=== PATIENT | female | born 1950 | race Caucasian/White ===

== ENCOUNTER 2020-05-11 13:59 | Emergency (ER) | payer MEDICARE, MEDICAID, SELFPAY ==
[2020-05-11 15:20] VITALS: BP 134/79; PULSE 72; RESP 16; TEMP 37.1; O2SAT 99; BMI 21.2
--- NOTE | 2020-05-11 18:05 | XR_ITS ---
EXAMINATION: XR HAND, LEFT CLINICAL INFORMATION: Pain COMPARISON: None TECHNIQUE: PA, lateral, and oblique views of the left hand. FINDINGS: No acute fracture or dislocation. Some scattered degenerative changes are noted. XR/XR hand LT 2V IMPRESSION: No acute finding of the left hand.
--- NOTE | 2020-05-11 18:23 | ED.EXTPRO ---
HPI - Extremity Problem General Chief complaint: Extremity Problem Stated complaint: hand pain Source: patient Mode of arrival: ambulatory Limitations: language barrier History of Present Illness HPI Narrative: 70-year-old female with past medical history of arthritis presents with 2 weeks of left hand pain and intermittent swelling of the knuckles. She does not have any swelling at this time, does not report any trauma, falls, or injury. She did not report any fevers or chills, has no other symptoms at this time. MD Complaint: extremity pain Onset (ago): week(s) (2) Pain Consistency: constant Location: left Severity scale (1-10): 6 Quality: aching Radiation: proximal Relieving factors: nothing Exacerbating factors: range of motion Associated symptoms: denies other symptoms Related Data Allergies Allergy/AdvReac Type Severity Reaction Status Date / Time iodine [IODINE] Allergy Intermediate NAUSEA Verified 05/11/20 15:24 SHELLFISH Allergy Intermediate NAUSEA Uncoded 02/05/20 17:30 fish Allergy Unknown Unknown Uncoded 05/11/20 15:24 Review of Systems Review of Systems: Constitutional: No Fever, No Chills ENT/Mouth: No Ear Pain, No Hoarseness, No sore throat Eyes: No Eye Pain, No Swelling, No Redness, No Foreign Body Cardiovascular: No Chest Pain, No SOB Respiratory: No Cough, No Dyspnea Gastrointestinal: No Nausea, No Vomiting, No Diarrhea, No abdominal Pain Genitourinary: No Dysuria, No Hematuria Musculoskeletal: positive left hand and knuckle pain, No Myalgias, No Joint Swelling Skin: No Skin lacerations, No rash Neuro: No Weakness, No Numbness, No Paresthesias, No Loss of Consciousness, No Dizziness, No Headache Psych: No Anxiety/Panic, No Depression Heme/Lymph: no easy bruising, no Lymphadenopathy Endocrine: No Polyuria, No Polydipsia Yes all other systems are reviewed and are negative [facility] Past Medical History Attestation statement: The following information was validated with the patient. Medical History Arthritis Diabetes Fibromyalgia HTN (hypertension) Social History Social History Advance Directives: No Advance Directives Information Provided: Yes Physical Exam Vital Signs: Vital Signs: Last Vital Signs Temp 98.8 F 05/11/20 15:20 Pulse 72 05/11/20 15:20 Resp 16 05/11/20 15:20 BP 134/79 05/11/20 15:20 Pulse Ox 99 05/11/20 15:20 Body Mass Index 21.2 Appearance: Alert. Oriented X3. No acute distress. Eyes: Pupils equal, round and reactive to light. ENT: Pharynx normal. Neck: Normal inspection. Neck supple. CVS: Normal heart rate and rhythm. Pulses normal. Respiratory: No respiratory distress. Breath sounds normal. Abdomen: Soft and nontender. Skin: Skin warm and dry. Normal skin color. Normal skin turgor. Extremities: No lower extremity edema. Neuro: No motor deficit. No sensory deficit. Course Course Course Narrative: 70-year-old female past medical history of arthritis presents with left hand pain and finger tingling for approximately 2 weeks. She does have intermittent swelling to the knuckles of the left hand, was seen at an urgent care earlier today and given Tylenol. Patient is here for x-rays. X-rays negative for acute findings. Plan of care is for patient to follow-up with primary care provider and to continue to take Tylenol. 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 Google translate utilized for discharge instructions. MDM - Extremity (Nontraumatic) Imaging Data Left hand x-ray: Attestation: I personally reviewed and interpreted this imaging study as follows: Radiologist's impression: EXAMINATION: XR HAND, LEFT CLINICAL INFORMATION: Pain COMPARISON: None TECHNIQUE: PA, lateral, and oblique views of the left hand. FINDINGS: No acute fracture or dislocation. Some scattered degenerative changes are noted. XR/XR hand LT 2V IMPRESSION: No acute finding of the left hand. Discharge Plan Discharge Clinical Impression: Arthritis Patient Disposition: Home, Self-Care Instructions: Arthritis (ED) Additional Instructions: Te evaluaron para el dolor de la mano izquierda. Se sospecha que esto es artritis. Cristian X negativos. Por favor, contin?e utilizando Tylenol seg?n sea necesario para el manejo del dolor. Seguimiento con el proveedor de atenci?n primaria a finales de esta semana para mayor atenci?n. Alessandra por elegir gurdeep departamento de emergencias para la evaluaci?n. Por favor, sam un seguimiento con el m?dico de atenci?n primaria seg?n sea necesario. Regrese al departamento de emergencias para cualquier s?ntoma nuevo, preocupante o que empeore You were evaluated for left hand pain. This is suspected to be arthritis. X-rays negative. Please continue to use Tylenol as needed for pain management. Follow-up with primary care provider later this week for further care. Thank you for choosing this emergency department for evaluation. Please follow-up with primary care physician as needed. Return to the emergency department for any new, concerning, or worsening symptoms. Interventions: ED Discharge Assessment Last Done: 05/11/20 20:10 Discharge Date/Time: 05/11/20 20:12 Print Language: Turkmen
== END 2020-05-11 20:12 | disposition home or self-care (01) ==
PROVIDERS: Emergency Provider Emergency Medicine; PCP Internal Medicine Geriatric Medicine
DX: M19.042 Primary osteoarthritis, left hand (principal); M79.642 Pain in left hand; I10 Essential (primary) hypertension; Z79.899 Other long term (current) drug therapy
CPT/HCPCS: 73120; 99283

== ENCOUNTER 2020-06-17 10:01 | Outpatient (REF) | payer MEDICARE, MEDICAID, SELFPAY ==
--- NOTE | 2020-06-17 10:06 | EMG_ITS ---
Bilateral median and ulnar motor and sensory studies were performed. Bilateral radial sensory studies were performed and paraspinal muscles were tested with a needle. IMPRESSION: 1. [id number] bilateral median neuropathy across carpal tunnel. 2. [id number] bilateral ulnar neuropathy across cubital tunnel. MD ARTUR [place]/MANNY / [id number]
== END 2020-06-17 10:02 | disposition home or self-care (01) ==
LOC: HO.NEURO 10:01
PROVIDERS: PCP Internal Medicine Geriatric Medicine; Visit Provider Internal Medicine Geriatric Medicine
DX: M79.2 Neuralgia and neuritis, unspecified (principal); M79.642 Pain in left hand
CPT/HCPCS: 95886; 95911

== ENCOUNTER → 2020-08-31 12:59 | Outpatient (BNVA) | payer MEDICARE, MEDICAID, SELFPAY | PROVIDERS: PCP Internal Medicine Geriatric Medicine; Visit Provider Orthopaedic Surgery | DX: G56.01 Carpal tunnel syndrome, right upper limb (principal); G56.02 Carpal tunnel syndrome, left upper limb; G56.21 Lesion of ulnar nerve, right upper limb; G56.22 Lesion of ulnar nerve, left upper limb | CPT/HCPCS: 99202 ==

== ENCOUNTER 2021-01-03 13:49 | Emergency (ER) | payer OTHER, MEDICARE, SELFPAY ==
--- NOTE | ~2021-01-03 | XR_ITS ---
EXAMINATION: XR SHOULDER, RIGHT CLINICAL INFORMATION: Fall. COMPARISON: Right shoulder September 11, 2011 TECHNIQUE: Three views of the right shoulder. FINDINGS: No fracture. No dislocation. No soft tissue calcification. There is mild degenerative change of the acromioclavicular joint and the glenohumeral joint. XR/XR shoulder RT min 2V IMPRESSION: 1. No acute abnormality. 2. Mild degenerative change of the acromioclavicular joint and the glenohumeral joint.
--- NOTE | ~2021-01-03 | CT_ITS ---
EXAMINATION: CT HEAD WITHOUT CONTRAST CLINICAL INFORMATION: Intracranial hemorrhage. COMPARISON: None TECHNIQUE: Contiguous axial imaging was performed from the skull base to vertex without intravenous administration of contrast. Coronal and sagittal reformatted images are performed at the CT scanner This CT examination was performed using dose optimization techniques as appropriate, variously including the following: *Automated exposure control *Adjustment of mA and/or kV according to patient size (this includes techniques or standardized protocols for targeted exams where dose is matched to indication/reason for exam; i.e. extremities or head) *Use of iterative reconstruction technique DLP: 623 mGy-cm FINDINGS: There is no evidence of acute intracranial hemorrhage or territorial infarction. No abnormal mass effect or midline shift is seen. Erwin to white matter differentiation is well preserved. No extra-axial fluid collections are identified. The ventricles are normal in size. There is no abnormal attenuation within the brain parenchyma. The osseous structures and soft tissues are normal. The mastoid air cells and visualized portions of the paranasal sinuses are well aerated. CT/CT head/brain wo con IMPRESSION: No acute intracranial pathology.
--- NOTE | ~2021-01-03 | XR_ITS ---
EXAMINATION: XR ANKLE, RIGHT CLINICAL INFORMATION: Fall. COMPARISON: None TECHNIQUE: 3 views of the right ankle. FINDINGS: The bones and soft tissues are normal. No fracture. Alignment is anatomic. Joint spaces are maintained. No joint effusion. XR/XR ankle RT min 3V IMPRESSION: Normal right ankle.
[2021-01-03 14:16] VITALS: BP 174/76; BP 186/87; PULSE 83; PULSE 92; RESP 18; TEMP 36.8; O2SAT 100; O2SAT 99; BMI 21.6
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
== END 2021-01-03 18:03 | disposition home or self-care (01) ==
PROVIDERS: Emergency Provider Emergency Medicine; PCP Internal Medicine Geriatric Medicine
DX: S93.401A Sprain of unspecified ligament of right ankle, initial encounter (principal); S43.401A Unspecified sprain of right shoulder joint, initial encounter; V03.00XA Pedestrian on foot injured in collision with car, pick-up truck or van in nontraffic accident, initial encounter; E11.9 Type 2 diabetes mellitus without complications; I10 Essential (primary) hypertension; Z79.4 Long term (current) use of insulin; Z79.82 Long term (current) use of aspirin; Z79.899 Other long term (current) drug therapy; Y93.01 Activity, walking, marching and hiking; Y92.9 Unspecified place or not applicable; Y99.9 Unspecified external cause status
CPT/HCPCS: 70450; 73030; 73610; 99283; 99284

== ENCOUNTER 2022-02-23 13:05 | Inpatient (IN) | payer OTHER, SELFPAY ==
--- NOTE | ~2022-02-23 | CT_ITS ---
EXAMINATION: CT ABDOMEN AND PELVIS WITHOUT CONTRAST CLINICAL INFORMATION: Upper abdominal pain. COMPARISON: CT abdomen pelvis without contrast 06/11/2017 TECHNIQUE: Multidetector volumetric imaging was performed from the superior aspect of the liver through the pubic symphysis. Sagittal and coronal reformatted images were obtained on the technologist's workstation. This CT examination was performed using dose optimization techniques as appropriate, variously including the following: *Automated exposure control *Adjustment of mA and/or kV according to patient size (this includes techniques or standardized protocols for targeted exams where dose is matched to indication/reason for exam; i.e. extremities or head) *Use of iterative reconstruction technique DLP: 295 mGy-cm FINDINGS: LUNG BASES: The lung bases are clear. LIVER, GALLBLADDER, AND BILIARY TREE: The liver is normal in size, shape, and attenuation. No focal hepatic lesion or biliary ductal dilatation is present. The gallbladder is unremarkable with no evidence of radiopaque gallstones, gallbladder wall thickening, or obvious pericholecystic inflammatory changes. PANCREAS: Unremarkable. SPLEEN: Unremarkable. ADRENAL GLANDS: Unremarkable. KIDNEYS AND URETERS: The kidneys are normal in size, shape, and attenuation. No hydronephrosis, hydroureter, or calculi seen. No perinephric stranding. Minimal fullness of bilateral kidney pelvis BLADDER: Unremarkable. GASTROINTESTINAL TRACT: There is moderate stool seen throughout the colon consistent with constipation. The small bowel loops are normal caliber. The appendix is not visualized. ABDOMINAL WALL: No significant hernia is appreciated. LYMPH NODES: Normal. VASCULAR: Unremarkable. PELVIC VISCERA: Uterus is not visualized. There is vascular calcifications in bilateral adnexa. OSSEOUS STRUCTURES: No aggressive lytic or sclerotic process seen. CT/CT abdomen pelvis wo IV con IMPRESSION: No acute intra-abdominal process seen. There is moderate constipation. Fleischner guidelines were followed.
--- NOTE | ~2022-02-23 | NM_ITS ---
Myocardial perfusion study Indication: Elevated troponins to evaluate for myocardial ischemia Technique: The patient was brought in for a Lexiscan perfusion study on 02/28/2022. Patient performed low-level exercise and was injected 0.4 mg of Lexiscan intravenously. Within a minute of injection, 30 mCi of sestamibi was given intravenously. Images were obtained using the SPECT gamma camera interlaced with the gating device. Images were obtained in supine position. Resting perfusion study was performed on 02/28/2022. Patient was administered 10 mCi of sestamibi intravenously at rest. Images were then obtained in supine position. Images obtained with and without CT attenuation. Total DLP 79 mGy-cm. Images were processed with the software and compared side to side in short axis, horizontal long axis and vertical long axis views. Findings: The stress perfusion study showed non attenuated as well as attenuated corrected images show normal uptake of radiotracer in all segments of LV myocardium. The gated study shows normal LV systolic function with calculated LVEF of greater than 70 %. LV cavity is normal size. The gated study shows normal systolic wall thickening and contraction of segments. Resting study shows no change in perfusion pattern compared to stress perfusion study. Gating at rest reveals normal systolic wall motion with ejection fraction at greater than 70 %. The findings are consistent with normal myocardial perfusion. NM/NM jose perf SPECT rest & str Impression: 1. Myocardial perfusion imaging study shows normal myocardial perfusion 2. Gated LVEF is greater than 70% 3. Transient ischemic dilatation not present EKG is nondiagnostic for ischemia
[2022-02-23 15:03] VITALS: BP 126/79; PULSE 109; RESP 20; TEMP 36; O2SAT 99; BMI 20.9
--- NOTE | 2022-02-23 15:09 | ECG_ITS ---
Test Reason : DIZZY Blood Pressure : / mmHG Vent. Rate : 101 BPM Atrial Rate : 101 BPM P-R Int : 142 ms QRS Dur : 066 ms QT Int : 336 ms P-R-T Axes : 086 066 073 degrees QTc Int : 435 ms Sinus tachycardia Right atrial enlargement Borderline ECG When compared with ECG of 25-DEC-2012 12:55, Vent. rate has increased BY 36 BPM Criteria for Septal infarct are no longer Present Nonspecific T wave abnormality no longer evident in Inferior leads Nonspecific T wave abnormality no longer evident in Anterior leads Right atrial enlargement is now Present Referred By: Generic ED Physician Electronically Signed By:KATIE SOUSA
[2022-02-23 15:27] LABS: MANUAL DIFF FLAG NO
[2022-02-23 15:29] LABS: Basophils Absolute Auto 0.1 X10*3/uL (0.0-0.2); Basophils Percent Auto 0.7 % (0-2); Eosinophils Percent Auto 0.6 % (0-4); Hemoglobin 10.9 g/dl (12.0-16.0); Imm Gran Abs Auto 0.01 X10*3/uL (0.00-0.03); Imm Gran Pct Auto 0.1 % (0.0-0.4); Lymphocytes Absolute Auto 2.6 X10*3/uL (1.2-4.9); Lymphocytes Percent Auto 36.2 % (20-40); Mean Corpuscular HGB Conc 31.1 g/dl (31.0-35.0); Mean Corpuscular Volume 77.1 fL (80.0-98.0); Monocytes Absolute Auto 0.5 X10*3/uL (0.1-1.2); Monocytes Percent Auto 7.2 % (2-11); Neutrophils Absolute Auto 3.9 x10*3/uL (2.0-8.3); Neutrophils Percent Auto 55.2 % (45-73); Platelet Count 397 X10*3/uL (160-400); Red Blood Count 4.54 X10*6/uL (4.20-5.50); Red Cell Distribution Width 12.8 % (11.0-16.0); White Blood Count 7.1 X10*3/uL (4.8-10.8)
[2022-02-23 15:51] LABS: Troponin-I High Sensitivity 18.3 ng/L (<3.5-17.0)
[2022-02-23 15:51] LABS: COVID-19 Test Negative (Negative)
[2022-02-23 15:59] LABS: Alanine Aminotransferase 6 U/L (0-31); Albumin Level 4.1 g/dL (3.5-5.0); Alkaline Phosphatase 155 U/L (39-117); Anion Gap 21 (12-20); Aspartate Amino Transferase 15 U/L (5-31); Bilirubin Direct 0.2 mg/dL (0.0-0.5); Bilirubin Total 0.3 mg/dL (0.0-1.0); Blood Urea Nitrogen 23 mg/dL (9-16); Calcium 9.3 mg/dL (8.4-10.2); Carbon Dioxide 24 mmol/L (22-29); Chloride 98 mmol/L (96-108); Creatinine Clr Calc Pharmacy 42.5; Estimated Glomerular Filt Rate > 60; Glucose Random 141 mg/dL (60-115); Lipase 21 U/L (8-78); Potassium 4.6 mmol/L (3.3-5.1); Sodium 138 mmol/L (135-145); Total Protein 7.3 g/dL (6.5-8.0)
[2022-02-23 22:00] VITALS: BP 150/78; PULSE 110; RESP 20; TEMP 37.7; O2SAT 96
[2022-02-23 22:43] LABS: Glucose, Whole Blood 104 mg/dL (60-115)
[2022-02-24] VITALS (10 sets, daily range): BP systolic 108–165; BP diastolic 54–74; PULSE 62–103; RESP 14–19; TEMP 36.6–37.6; O2SAT 97–100; BMI 20.9
--- NOTE | 2022-02-24 02:36 | ED_ITS ---
HPI - Abdominal Pain General Chief Complaint: Abdominal Pain Stated Complaint: Stomach Ache Dizziness Time Seen by Provider: 02/24/22 02:36 Source: patient Mode of arrival: ambulatory Limitations: no limitations History of Present Illness HPI narrative: Patient has a gastritis complaining of nausea, epigastric pain, dizziness headache for last 4 days no chest pain patient been taking baby aspirin and Prilosec a long time used to work now for last 4 days not working and the pain is a burning sensation mostly in epigastric area gets worse after eating food no radiation of pain to the left arm or left chest no shortness of breath no prior history of coronary disease Related Data Home Medications Medication Instructions Recorded Confirmed acetaminophen 325 mg tablet [id number] mg PO Q8H PRN pain 08/31/20 acetaminophen 500 mg tablet 1,000 mg PO Q8H PRN pain 08/31/20 alcohol swabs pad topical 08/31/20 aspirin 81 mg tablet,delayed 81 mg PO QAM 08/31/20 release betamethasone dipropionate 0.05 % appl topical DAILY 08/31/20 topical cream ergocalciferol (vitamin D2) 1,250 1,250 mcg PO QWEEK 08/31/20 mcg (50,000 unit) capsule fluoxetine 20 mg capsule mg PO 08/31/20 fluticasone propionate 50 1 spray intranasal DAILY 08/31/20 mcg/actuation nasal spray,suspension gabapentin 100 mg capsule mg PO 08/31/20 insulin degludec 100 unit/mL (3 unit subcut 08/31/20 mL) subcutaneous pen insulin glargine 100 unit/mL (3 unit subcut 08/31/20 mL) subcutaneous pen ketoconazole 2 % topical cream appl topical 08/31/20 ketorolac 0.5 % eye drops 0 drp ophthalmic (eye) 08/31/20 lancets 33 gauge #100 ea 08/31/20 lisinopril 5 mg tablet 5 mg PO DAILY 08/31/20 metformin 500 mg tablet,extended 500 mg PO BID 08/31/20 release 24 hr omeprazole 20 mg capsule,delayed 20 mg PO DAILY 08/31/20 release pen needle, diabetic 32 gauge x #50 ea 08/31/20 sitagliptin 50 mg tablet 50 mg PO DAILY 08/31/20 Allergies Allergy/AdvReac Type Severity Reaction Status Date / Time iodine [IODINE] Allergy Intermediate NAUSEA Verified 08/31/20 13:06 SHELLFISH Allergy Intermediate NAUSEA Uncoded 08/31/20 13:06 fish Allergy Unknown Unknown Uncoded 08/31/20 13:06 Review of Systems Review of Systems Yes all other systems are reviewed and are negative [facility] Past Medical History Medical History Arthritis Diabetes Fibromyalgia HTN (hypertension) Social History Social History Alcohol intake: never Advance Directives: No Current occupation: right handed Gender identity: Female Physical Exam ED Vital Signs: Vital Signs - 24 hr 02/23/22 15:03 02/23/22 22:00 02/24/22 02:06 Temperature 96.8 F 99.8 F 98.6 F Pulse Rate 109 H 110 H 103 H Respiratory Rate 20 20 18 Blood Pressure 126/79 150/78 H 165/71 H Pulse Oximetry 99 96 99 Oxygen Delivery Method Room Air Room Air Room Air 02/24/22 02:20 02/24/22 04:17 Temperature Pulse Rate 94 95 Respiratory Rate 14 Blood Pressure 142/67 H 140/72 H Pulse Oximetry 97 Oxygen Delivery Method Room Air BMI result Body Mass Index 20.9 Appearance: Alert. Oriented X3. No acute distress. Eyes: PERRLA, No Nystagmus ENT: Pharynx normal. Oral Mucosa moist Neck: Normal inspection. Neck supple. CVS: Normal heart rate and rhythm. Pulses normal. Respiratory: No respiratory distress. Equal air entry bilateral, no wheez ing/rales/rhonchi Abdomen: Soft and mild epigastric tenderness,. Bowel sounds are present, no mass palpable, no CVA tenderness Skin: Skin warm and dry. Normal skin color. Normal skin turgor. Extremities: No lower extremity edema. No calf tenderness Neuro: Oriented X 3. No motor deficit. MDM - Abdominal Pain MDM Narrative Medical decision making narrative: Patient with epigastric pain clinically gastritis EKG without any acute ischemic changes delta troponin is positive increased from 18.3 to 47.4, CT scan of the abdomen negative, will admit patient to rule out ACS and cardiac evaluation Medical Records Attestation: I reviewed the patient's medical records. Lab Data Attestation: I reviewed the patient's lab results. Result diagrams: 02/23/22 15:20 02/23/22 15:20 Labs: Lab Results 02/23/22 02/23/22 02/23/22 Range/Units 15:20 15:20 15:20 WBC 7.1 (4.8-10.8) X10*3/uL RBC 4.54 (4.20-5.50) X10*6/uL Hgb 10.9 L (12.0-16.0) g/dl Hct 35.0 L (37.0-47.0) % MCV 77.1 L (80.0-98.0) fL MCH 24.0 L (27.0-33.0) pg MCHC 31.1 (31.0-35.0) g/dl RDW 12.8 (11.0-16.0) % Plt Count 397 (160-400) X10*3/uL MPV 9.0 L (9.4-12.3) fL Immature Gran % (Auto) 0.1 (0.0-0.4) % Neut % (Auto) 55.2 (45-73) % Lymph % (Auto) 36.2 (20-40) % [place] % (Auto) 7.2 (2-11) % Eos % (Auto) 0.6 (0-4) % Baso % (Auto) 0.7 (0-2) % Lymph # (Auto) 2.6 (1.2-4.9) X10*3/uL [place] # (Auto) 0.5 (0.1-1.2) X10*3/uL Eos # (Auto) 0.0 (0.0-0.4) X10*3/uL Baso # (Auto) 0.1 (0.0-0.2) X10*3/uL Abs Immat Gran (auto) 0.01 (0.00-0.03) X10*3/uL Absolute Neuts (auto) 3.9 (2.0-8.3) x10*3/uL Absolute Nucleated RBC 0.000 (0.0-0.012) X10*3/uL Nucleated RBC % (auto) 0.0 (0.0-0.2) /100WBC Sodium 138 (135-145) mmol/L Potassium 4.6 (3.3-5.1) mmol/L Chloride 98 (96-108) mmol/L Carbon Dioxide 24 (22-29) mmol/L Anion Gap 21 H (12-20) BUN 23 H (9-16) mg/dL Creatinine 0.84 (0.5-1.4) mg/dL Estim Creat Clear Calc 42.5 Estimated GFR > 60 POC Glucose (60-115) mg/dL Random Glucose 141 H (60-115) mg/dL Calcium 9.3 (8.4-10.2) mg/dL Total Bilirubin 0.3 (0.0-1.0) mg/dL Direct Bilirubin 0.2 (0.0-0.5) mg/dL AST 15 (5-31) U/L ALT 6 (0-31) U/L Alkaline Phosphatase 155 H (39-117) U/L Troponin I High Sens 18.3 H (<3.5-17.0) ng/L Total Protein 7.3 (6.5-8.0) g/dL Albumin 4.1 (3.5-5.0) g/dL Lipase 21 (8-78) U/L Urine Color Urine Appearance Urine pH (5.0-9.0) Ur Specific [place] (1.005-1.025) Urine Protein (Neg-Trace) mg/dL Urine Glucose (UA) (Negative) mg/dL Urine Ketones (Negative) mg/dL Urine Blood (Negative) Urine Nitrite (Negative) Ur Leukocyte Esterase (Negative) COVID-19 (SARAY) (Negative) COVID-19 Clin Com 02/23/22 02/23/22 02/24/22 Range/Units 15:23 22:05 02:51 WBC (4.8-10.8) X10*3/uL RBC (4.20-5.50) X10*6/uL Hgb (12.0-16.0) g/dl Hct (37.0-47.0) % MCV (80.0-98.0) fL MCH (27.0-33.0) pg MCHC (31.0-35.0) g/dl RDW (11.0-16.0) % Plt Count (160-400) X10*3/uL MPV (9.4-12.3) fL Immature Gran % (Auto) (0.0-0.4) % Neut % (Auto) (45-73) % Lymph % (Auto) (20-40) % [place] % (Auto) (2-11) % Eos % (Auto) (0-4) % Baso % (Auto) (0-2) % Lymph # (Auto) (1.2-4.9) X10*3/uL [place] # (Auto) (0.1-1.2) X10*3/uL Eos # (Auto) (0.0-0.4) X10*3/uL Baso # (Auto) (0.0-0.2) X10*3/uL Abs Immat Gran (auto) (0.00-0.03) X10*3/uL Absolute Neuts (auto) (2.0-8.3) x10*3/uL Absolute Nucleated RBC (0.0-0.012) X10*3/uL Nucleated RBC % (auto) (0.0-0.2) /100WBC Sodium (135-145) mmol/L Potassium (3.3-5.1) mmol/L Chloride (96-108) mmol/L Carbon Dioxide (22-29) mmol/L Anion Gap (12-20) BUN (9-16) mg/dL Creatinine (0.5-1.4) mg/dL Estim Creat Clear Calc Estimated GFR POC Glucose 104 (60-115) mg/dL Random Glucose (60-115) mg/dL Calcium (8.4-10.2) mg/dL Total Bilirubin (0.0-1.0) mg/dL Direct Bilirubin (0.0-0.5) mg/dL AST (5-31) U/L ALT (0-31) U/L Alkaline Phosphatase (39-117) U/L Troponin I High Sens (<3.5-17.0) ng/L Total Protein (6.5-8.0) g/dL Albumin (3.5-5.0) g/dL Lipase (8-78) U/L Urine Color Dark Yellow Urine Appearance Clear Urine pH 5.5 (5.0-9.0) Ur Specific [place] 1.020 (1.005-1.025) Urine Protein Trace (Neg-Trace) mg/dL Urine Glucose (UA) Negative (Negative) mg/dL Urine Ketones 40 (Negative) mg/dL Urine Blood Negative (Negative) Urine Nitrite Negative (Negative) Ur Leukocyte Esterase Negative (Negative) COVID-19 (SARAY) Negative (Negative) COVID-19 Clin Com See Note 02/24/22 Range/Units 06:23 WBC (4.8-10.8) X10*3/uL RBC (4.20-5.50) X10*6/uL Hgb (12.0-16.0) g/dl Hct (37.0-47.0) % MCV (80.0-98.0) fL MCH (27.0-33.0) pg MCHC (31.0-35.0) g/dl RDW (11.0-16.0) % Plt Count (160-400) X10*3/uL MPV (9.4-12.3) fL Immature Gran % (Auto) (0.0-0.4) % Neut % (Auto) (45-73) % Lymph % (Auto) (20-40) % [place] % (Auto) (2-11) % Eos % (Auto) (0-4) % Baso % (Auto) (0-2) % Lymph # (Auto) (1.2-4.9) X10*3/uL [place] # (Auto) (0.1-1.2) X10*3/uL Eos # (Auto) (0.0-0.4) X10*3/uL Baso # (Auto) (0.0-0.2) X10*3/uL Abs Immat Gran (auto) (0.00-0.03) X10*3/uL Absolute Neuts (auto) (2.0-8.3) x10*3/uL Absolute Nucleated RBC (0.0-0.012) X10*3/uL Nucleated RBC % (auto) (0.0-0.2) /100WBC Sodium (135-145) mmol/L Potassium (3.3-5.1) mmol/L Chloride (96-108) mmol/L Carbon Dioxide (22-29) mmol/L Anion Gap (12-20) BUN (9-16) mg/dL Creatinine (0.5-1.4) mg/dL Estim Creat Clear Calc Estimated GFR POC Glucose (60-115) mg/dL Random Glucose (60-115) mg/dL Calcium (8.4-10.2) mg/dL Total Bilirubin (0.0-1.0) mg/dL Direct Bilirubin (0.0-0.5) mg/dL AST (5-31) U/L ALT (0-31) U/L Alkaline Phosphatase (39-117) U/L Troponin I High Sens 47.4 H D (<3.5-17.0) ng/L Total Protein (6.5-8.0) g/dL Albumin (3.5-5.0) g/dL Lipase (8-78) U/L Urine Color Urine Appearance Urine pH (5.0-9.0) Ur Specific [place] (1.005-1.025) Urine Protein (Neg-Trace) mg/dL Urine Glucose (UA) (Negative) mg/dL Urine Ketones (Negative) mg/dL Urine Blood (Negative) Urine Nitrite (Negative) Ur Leukocyte Esterase (Negative) COVID-19 (SARAY) (Negative) COVID-19 Clin Com ECG Data Attestation: I personally reviewed and interpreted this ECG as follows: Interpretation: Normal sinus rhythm heart rate 101 normal axis normal interval no acute STT no a cute skin Discharge Plan Discharge Clinical Impression: Acute gastritis, ACS (acute coronary syndrome) Patient Disposition: Admitted As Inpatient
[2022-02-24 03:00] LABS: Appearance Urine Clear; Color Urine Dark Yellow; Glucose Urine UA Negative (Negative); Leukocyte Esterase Urine Negative (Negative); Nitrite Urine Negative (Negative); PH 5.5 (5.0-9.0); Urine Blood Negative (Negative); Urine Ketones 40 mg/dL (Negative); Urine Protein Trace mg/dL (Neg-Trace)
[2022-02-24] MEDS: 0.9 % Sodium Chloride 1,000 ML 999 ML IV (04:27)
[2022-02-24] MEDS: Famotidine/PF 20 MG/2 ML VIAL IVPUSH (04:28)
[2022-02-24] MEDS: Dicyclomine HCl 10 MG CAPSULE 20 MG PO (06:24)
[2022-02-24 06:57] LABS: Troponin-I High Sensitivity 47.4 ng/L (<3.5-17.0)
[2022-02-24] MEDS: Aspirin Enteric Coated 81 MG TABLET.DR PO (10:30)
--- NOTE | 2022-02-24 11:55 | PHA.MEDREC ---
Pharmacy Consult ? Medication Reconciliation Pharmacy has completed the medication reconciliation.Spoke with patient in the ED via aerial photograph interpreter. She states she is ONLY taking trulicity and is not on Daily insulin anymore ( lantus).
--- NOTE | 2022-02-24 12:00 | CA_ITS ---
Transthoracic Echocardiogram Patient (Last, First, Middle): Orly Estrada, Gender: Female Date of : 1950 Age: 72 Procedure Date: 02/24/2022 Procedure Type: Transthoracic Echocardiogram Location: ER Height: 149. cm Weight: 47. kg BSA: 1.39 m2 Heart Rate: bpm BP: 142 / 74 mmHg Pharmacy Technician Per Diem: ANABEL Bal MD: Abner Lomeli MD Chief Payroll Clerk: Christopher Rodriguez MD Symptoms: elevated trop Study Quality: Fair ECG Rhythm: Sinus Conclusions: - 1. Normal LV systolic function with impaired relaxation filling pattern 2. Normal cardiac valvular Doppler 3. No gross pericardial effusion Findings Left Ventricle Normal left ventricular size, thickness, and systolic function. The visually estimated ejection fraction is between 60-65%. Regional wall motion abnormalities can not be excluded due to suboptimal endocardial definition. Spectral Doppler is indicative of an impaired relaxation filling pattern. E/E prime ratio is between 8 and 15 consistent with indeterminate filling pressures. Atria The left atrium is normal in size. Interatrial shunt cannot be excluded. The right atrium is normal in size. Aortic Valve There is mild thickening of the aortic valve. There is no aortic valve stenosis. There is no aortic valve regurgitation. Mitral Valve There is mild anterior and posterior mitral leaflet thickening. There is trace mitral valve regurgitation. There is no mitral valve stenosis. Pulmonic Valve The pulmonic valve was not well visualized. Tricuspid Valve Likely normal tricuspid valve structure and function. Tricuspid regurgitation envelope is inadequate for calculation of right ventricular systolic pressure. Great Vessels All visible segments of the aorta are normal in size. The pulmonary artery was not well visualized. Venous The inferior vena cava was not well visualized. Pericardium/Pleural There is no evidence of pericardial effusion. Prior Study Comparison No prior study available for comparison. Measurements 2D Linear Measurements IVSd: 0.87 0.6-0.9/0.6-1.0 cm LVIDd: 3.42 3.9-5.3/4.2-5.9 cm LVIDd Index: 2.46 2.4-3.2/2.2-3.1 cm/m2 LVIDs: 1.85 2.0-3.6 cm LVPWd: 0.69 0.7-1.1 cm LA Diam: 2.80 2.7-3.8/3.0-4.0 cm LAIDs Index: 2.01 1.5-2.3 cm/m2 LV Mass: 87.00 67-162/88-224 g LV Mass Index: 62.59 43-95/49-115 g/m2 LVOT Diam: 1.60 3.0+(-)1.3 cm 2D Systolic Function EF 4C: 64.50 >55% EF 2C: 69.20 >55% Mitral Valve MV Pk E: 0.81 MV PK A: 1.23 MV Decel Time: 269.00 E/A: 0.70 E'Lateral: 9.79 E'Medial: 6.85 E/E' Med: 11.80 E/E' Lat: 8.30 PHT: 79.00 MVA PHT: 2.78 Decel [place]: 3.01 Aortic Valve AoV Pk Lex: 1.36 AoV Mn Lex: 0.86 AoV VTI: 0.24 AoV Pk Grad: 7.00 Aov Mn Grad: 3.00 KARISHMA Cont.VTI: 1.75 LVOT LVOT Pk Lex: 1.12 LVOT Mn Lex: 0.74 LVOT VTI: 0.21 LVOT Pk Grad: 5.00 LVOT Mn Grad: 3.00 LVOT Diam: 1.60 LVOT Area: 2.01 Diastolic Function MV Pk E: 0.81 MV Pk A: 1.23 E/A: 0.70 E'Medial: 6.85 E/E' Med: 11.80 E' Laterial: 9.79 E/E' Lat: 8.30 Right Ventricle TAPSE (mm): 21.00 TVS' Lex: 10.00 Tricuspid Valve TR Pk Elx: 2.00 TR Pk Grad: 16.00 RA Press: 3.00 Great Vessels Aorta Sinus of Valsalva: 2.80 2.0-3.5 cm Ao Asc: 2.70 2.1-3.4 cm Pulmonary Valve PV Pk Lex: 1.09 Peak PV Grad: 5.00 Updated in Other Vendor System with Status of Final Christopher Rodriguez MD electronically signed on 02/24/2022 4:06:36 PM with status of Final
[2022-02-24] MEDS: Enoxaparin Sodium 40 MG/0.4 ML SYRINGE SUBCUT (13:07)
[2022-02-24 13:30] LABS: Troponin-I High Sensitivity 198.1 ng/L (<3.5-17.0)
--- NOTE | 2022-02-24 14:07 | PM.IMHP ---
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 presented to [facility] [place] with symptoms of epigastric pain that is worse from baseline, decreased by mouth intake, associated with dizziness, headache and nausea, in the emergency room workup showed hematocrit of 35 with last hematocrit checked in [address] abdomen and pelvis showed moderate constipation COVID test is negative EKG showed no acute ischemic changes however patient noted to have a rising troponin initial troponin was 18.3 that bumped up to 47.4 hence hospitalist team was called for admission at the present time patient epigastric pain has improved after receiving IV Pepcid, Bentyl, and IV fluid patient denies shortness of breath no diaphoresis, no palpitation denies prior history of coronary artery disease feels epigastric pain has same intensity but severe than her prior episode of gastritis since patient has multiple coronary artery disease risk factor she is being admitted to [facility] [place] for continued monitoring and treatment. Review of Systems Review of Systems: General no fever chills. CVS no chest pain, no palpitation. Respiratory no cough no sob. Yes all other systems are reviewed and are negative [facility] Medical History Arthritis Diabetes Fibromyalgia HTN (hypertension) Pertinent family history: No family history of premature coronary artery disease Social History Alcohol intake: never Advance Directives: No Current occupation: right handed Gender identity: Female Meds Allergies Allergy/AdvReac Type Severity Reaction Status Date / Time iodine [IODINE] Allergy Intermediate NAUSEA Verified 08/31/20 13:06 SHELLFISH Allergy Intermediate NAUSEA Uncoded 08/31/20 13:06 fish Allergy Unknown Unknown Uncoded 08/31/20 13:06 Active Medications: Current Medications Acetaminophen (Acetaminophen 325 Mg Tablet) 650 mg PO Q6H PRN PRN Reason: Pain, Mild (Pain Scale 1-3) Al Hydroxide/Mg Hydroxide (Magnesium Hydrox/Alum Hydrox 30 Ml Oral.Susp) 15 ml PO Q4H PRN PRN Reason: epigastric pain Aspirin (Aspirin Enteric Coated 81 Mg Tablet.Dr) 81 mg PO DAILY DARCIE Last Admin: 10/07/22 14:03 Dose: Not Given Fluoxetine HCl (Fluoxetine Hcl 20 Mg Capsule) 20 mg PO BID [facility] Gabapentin (Gabapentin 100 Mg Capsule) 100 mg PO BEDTIME [facility] Heparin Sodium (Porcine) (Heparin Sodium,Porcine 5,000 Unit/Ml Vial) 2,800 unit 60 unit/kg (2800 unit) IVPUSH ONCE ONE Stop: 02/24/22 14:04 Heparin Sodium (Porcine) (Heparin Sodium,Porcine 5,000 Unit/Ml Vial) 1,900 unit 40 unit/kg (1900 unit) IVPUSH PROTOCOL BOLUS PRN; Protocol PRN Reason: 40 unit/kg - Heparin Protocol Heparin Sodium (Porcine) (Heparin Sodium,Porcine 5,000 Unit/Ml Vial) 3,800 unit 80 unit/kg (3800 unit) IVPUSH PROTOCOL BOLUS PRN; Protocol PRN Reason: 80 unit/kg - Heparin Protocol Heparin Sodium/Sodium Chloride (Heparin Sodium,Porcine/1/2ns) 25,000 unit in 250 mls @ 0 mls/hr IVCONT .Q0M [facility]; Protocol Latanoprost (Latanoprost 0.005 % Ophth [place] 2.5 Ml Drops) 1 drop EYE-BOTH BEDTIME [facility] Melatonin (Melatonin 3 Mg Tablet) 3 mg PO BEDTIME PRN PRN Reason: Insomnia Metoprolol Tartrate (Metoprolol Tartrate 25 Mg Tablet) 25 mg PO BID [facility]; Protocol Non-Formulary Medication (Netarsudil [Rhopressa]) 1 drop EYE-BOTH DAILY@1400 [facility] Omeprazole (Omeprazole 20 Mg Capsule.Dr) 20 mg PO BID@0630,1630 [facility] Ondansetron HCl (Ondansetron Hcl 4 Mg/2 Ml Vial) 4 mg IVPUSH Q8H PRN PRN Reason: Nausea and Vomiting Pharmacy Consult (Consult Rx Perform Med Rec) 1 each MISCELLANE ONCE PRN PRN Reason: Consult order Sodium Chloride (0.9 % Sodium Chloride Flush 3 Ml Syringe) 3 ml IVFLUSH QSHIFT [facility] Vitamin D (Cholecalciferol (Vitamin D3) 25 Mcg Tablet) 50 mcg PO DAILY [facility] Home Medications Medication Instructions Recorded Confirmed Last Taken Type acetaminophen 500 mg tablet 1,000 mg PO Q8H PRN pain 08/31/20 02/24/22 02/21/22 History aspirin 81 mg tablet,delayed 81 mg PO DAILY 08/31/20 02/24/22 02/21/22 History release fluoxetine 20 mg capsule 20 mg PO BID 08/31/20 02/24/22 02/21/22 History gabapentin 100 mg capsule 100 mg PO BEDTIME 08/31/20 02/24/22 02/21/22 History lancets 33 gauge #100 ea 08/31/20 Unknown History lisinopril 5 mg tablet 5 mg PO DAILY 08/31/20 02/24/22 02/21/22 History pen needle, diabetic 32 gauge x #50 ea 08/31/20 Unknown History cholecalciferol (vitamin D3) 50 1 tab PO DAILY 02/24/22 02/24/22 02/21/22 History mcg (2,000 unit) tablet dulaglutide 1.5 mg/0.5 mL 1.5 mg subcut TH@0900 02/24/22 02/24/22 02/21/22 History subcutaneous pen injector (Trulicity) latanoprost 0.005 % eye drops 1 drp ophthalmic (eye) BEDTIME 02/24/22 02/24/22 02/21/22 History netarsudil 0.02 % eye drops 1 drp ophthalmic (eye) DAILY@1400 02/24/22 02/24/22 02/21/22 History (Rhopressa) omeprazole 20 mg capsule,delayed 1 cap PO DAILY@0630 02/24/22 02/24/22 02/21/22 History release Physical Exam Vital Signs and Narrative: Vital Signs: Last Vital Signs Temp 98.6 F 02/24/22 02:06 Pulse 86 02/24/22 13:08 Resp 17 02/24/22 13:08 BP 142/74 H 02/24/22 13:08 Pulse Ox 98 02/24/22 13:08 O2 Del Method 02/24/22 13:08 BMI result Body Mass Index 20.9 Const: Other: General awake alert x3, resting comfortably in no acute distress. anicteric sclera Neck supple, no JVD. CVS regular rate rhythm, Respiratory lungs clear to auscultation, no respiratory distress, no wheeze, no rhonchi. Gastrointestinal abdomen soft, nontender, bowel sounds audible, no guarding , no rigidity. Extremities no edema. Neuro nonfocal Skin no rash psych appropriate affect Results Labs CBC and Chem 7: 02/23/22 15:20 02/23/22 15:20 Labs: Laboratory Results - last 24 hr 02/23/22 02/23/22 02/23/22 15:20 15:20 15:20 MCV 77.1 L MCH 24.0 L MCHC 31.1 RDW 12.8 Plt Count 397 MPV 9.0 L Immature Gran % (Auto) 0.1 Neut % (Auto) 55.2 Lymph % (Auto) 36.2 [place] % (Auto) 7.2 Eos % (Auto) 0.6 Baso % (Auto) 0.7 Lymph # (Auto) 2.6 [place] # (Auto) 0.5 Eos # (Auto) 0.0 Baso # (Auto) 0.1 Abs Immat Gran (auto) 0.01 Absolute Neuts (auto) 3.9 Absolute Nucleated RBC 0.000 Nucleated RBC % (auto) 0.0 Anion Gap 21 H Estim Creat Clear Calc 42.5 Estimated GFR > 60 POC Glucose Random Glucose 141 H Calcium 9.3 Total Bilirubin 0.3 Direct Bilirubin 0.2 AST 15 ALT 6 Alkaline Phosphatase 155 H Troponin I High Sens 18.3 H Total Protein 7.3 Albumin 4.1 Lipase 21 Urine Color Urine Appearance Urine pH Ur Specific [place] Urine Protein Urine Glucose (UA) Urine Ketones Urine Blood Urine Nitrite Ur Leukocyte Esterase COVID-19 (SARAY) COVID-[facility] Clin Com 02/23/22 02/23/22 02/24/22 15:23 22:05 02:51 MCV MCH MCHC RDW Plt Count MPV Immature Gran % (Auto) Neut % (Auto) Lymph % (Auto) [place] % (Auto) Eos % (Auto) Baso % (Auto) Lymph # (Auto) [place] # (Auto) Eos # (Auto) Baso # (Auto) Abs Immat Gran (auto) Absolute Neuts (auto) Absolute Nucleated RBC Nucleated RBC % (auto) Anion Gap Estim Creat Clear Calc Estimated GFR POC Glucose 104 Random Glucose Calcium Total Bilirubin Direct Bilirubin AST ALT Alkaline Phosphatase Troponin I High Sens Total Protein Albumin Lipase Urine Color Dark Yellow Urine Appearance Clear Urine pH 5.5 Ur Specific [place] 1.020 Urine Protein Trace Urine Glucose (UA) Negative Urine Ketones 40 Urine Blood Negative Urine Nitrite Negative Ur Leukocyte Esterase Negative COVID-19 (SARAY) Negative COVID-19 Clin Com See Note 02/24/22 02/24/22 06:23 12:57 MCV MCH MCHC RDW Plt Count MPV Immature Gran % (Auto) Neut % (Auto) Lymph % (Auto) [place] % (Auto) Eos % (Auto) Baso % (Auto) Lymph # (Auto) [place] # (Auto) Eos # (Auto) Baso # (Auto) Abs Immat Gran (auto) Absolute Neuts (auto) Absolute Nucleated RBC Nucleated RBC % (auto) Anion Gap Estim Creat Clear Calc Estimated GFR POC Glucose Random Glucose Calcium Total Bilirubin Direct Bilirubin AST ALT Alkaline Phosphatase Troponin I High Sens 47.4 H D 198.1 H* D Total Protein Albumin Lipase Urine Color Urine Appearance Urine pH Ur Specific [place] Urine Protein Urine Glucose (UA) Urine Ketones Urine Blood Urine Nitrite Ur Leukocyte Esterase COVID-19 (SARAY) COVID-19 Clin Com Imaging Radiologist's Impressions: Impressions Abdomen/Pelvis CT 02/24/22 06:45 IMPRESSION: No acute intra-abdominal process seen. There is moderate constipation. Fleischner guidelines were followed. Assessment and Plan (1) NSTEMI (non-ST elevated myocardial infarction): Status: Acute Plan 72-year-old female patient here with epigastric pain, associated with nausea and dizziness noted to have elevated troponin patient will be admitted to intermediate care unit to rule out acute coronary syndrome NSTEMI Epigastric pain ( angina equivalent)with elevated troponin epigastric pain resolved no recurrent episode of chest pain, no palpitations, no shortness of breath, EKG showed no ischemia troponin bumped from 18.3 to 47.4 and now 198 will continue to trend troponin since patient has multiple coronary artery disease risk factors with hypertension, hyperlipidemia and diabetes last LDL was 130 on June 2018, will place patient on IV heparin, beta-blockers, aspirin and statin will obtain echocardiogram and cardiology consultation as needed nitro for chest discomfort chronic gastritis increase Prilosec to b.i.d. add as needed Maalox diabetes mellitus place on diabetic diet, insulin sliding scale at home patient takes Trulicity, follow point of care blood sugars hypertension place patient on metoprolol 25 b.i.d., at home was on lisinopril 5 mg will hold fibromyalgia/left arm neuropathy continue gabapentin DVT prophylaxis with IV heparin patient will need 2 night inpatient stay due to elevated troponin requiring IV heparin Quality Stroke Does the patient have a stroke diagnosis?: No VTE Prior VTE?: No VTE Risk Level:: Medical - moderate - high VTE Device Contraindication: Treatment Not Indicated VTE Drug Contraindication: N/A - Med Ordered
[2022-02-24 14:45] LABS: INTERNATIONAL NORM RATIO 1.1 (0.9-1.1); Prothrombin Time 12.6 SEC (10.0-13.1)
[2022-02-24 14:47] LABS: PTT Heparin Drip 42.5 SEC (53-77.9)
[2022-02-24] MEDS: Heparin Sodium,Porcine/1/2NS 25,000 UNIT/250 ML IV.SOLN 5.65 UNIT IVCONT (15:25)
[2022-02-24] MEDS: Heparin Sodium,Porcine 5,000 UNIT/ML VIAL 2800 UNIT IVPUSH (15:28)
[2022-02-24] MEDS: Atorvastatin Calcium 40 MG TABLET PO (15:28)
[2022-02-24] MEDS: Omeprazole 20 MG CAPSULE.DR PO (15:28)
[2022-02-24] MEDS: Metoprolol Tartrate 25 MG TABLET PO ×2 (15:29→22:09)
[2022-02-24] MEDS: 0.9 % Sodium Chloride Flush 3 ML SYRINGE IVFLUSH ×2 (16:53→22:11)
--- NOTE | 2022-02-24 17:04 | PC.NURSE ---
Assumed care of patient at this time.
[2022-02-24 17:21] LABS: Glucose, Whole Blood 128 mg/dL (60-115)
[2022-02-24 19:37] LABS: Troponin-I High Sensitivity 151.6 ng/L (<3.5-17.0)
[2022-02-24 20:35] LABS: Glucose, Whole Blood 186 mg/dL (60-115)
[2022-02-24 21:55] LABS: PTT Heparin Drip 88.2 SEC (53-77.9)
[2022-02-24] MEDS: FLUoxetine HCl 20 MG CAPSULE PO (22:10)
[2022-02-24] MEDS: Gabapentin 100 MG CAPSULE PO (22:10)
[2022-02-24] MEDS: Insulin Lispro 100 UNIT/ML 3 ML VIAL SUBCUT (22:10)
[2022-02-25 02:19] VITALS: BP 137/66; PULSE 74; RESP 20; TEMP 36.4; O2SAT 98
[2022-02-25 03:54] LABS: PTT Heparin Drip 41.7 SEC (53-77.9)
[2022-02-25] MEDS: Heparin Sodium,Porcine 5,000 UNIT/ML VIAL 1900 UNIT IVPUSH ×2 (04:29→18:18)
[2022-02-25 06:51] LABS: Hematocrit 33.9 % (37.0-47.0); Hemoglobin 10.8 g/dl (12.0-16.0); Mean Corpuscular HGB Conc 31.9 g/dl (31.0-35.0); Mean Corpuscular Hemoglobin 24.3 pg (27.0-33.0); Mean Corpuscular Volume 76.4 fL (80.0-98.0); Mean Platelet Volume 9.3 fL (9.4-12.3); Platelet Count 414 X10*3/uL (160-400); Red Blood Count 4.44 X10*6/uL (4.20-5.50); Red Cell Distribution Width 12.6 % (11.0-16.0); White Blood Count 6.7 X10*3/uL (4.8-10.8)
[2022-02-25] MEDS: Omeprazole 20 MG CAPSULE.DR PO ×2 (06:51→16:04)
[2022-02-25 06:53] LABS: INTERNATIONAL NORM RATIO 1.1 (0.9-1.1); Prothrombin Time 12.2 SEC (10.0-13.1)
[2022-02-25 07:30] LABS: Cholesterol 172 mg/dL; HDL Cholesterol 36 mg/dL; Iron 20 mcg/dL (30-160); LDL Cholesterol Calculated 111 mg/dl; Percent Iron Saturation 7 % (15-50); Total Iron Binding Capacity 284 mcg/dL (228-428); Triglycerides 128 mg/dL; Unsaturated Iron Binding 264 ug/dL
[2022-02-25 07:33] LABS: Glucose, Whole Blood 160 mg/dL (60-115)
[2022-02-25 07:42] VITALS: BP 140/66; PULSE 79; RESP 20; TEMP 36.4; O2SAT 98
[2022-02-25 07:50] LABS: Ferritin 50 ng/mL (10-250)
[2022-02-25] MEDS: Aspirin Enteric Coated 81 MG TABLET.DR PO (08:41)
[2022-02-25] MEDS: Atorvastatin Calcium 40 MG TABLET PO (08:41)
[2022-02-25] MEDS: FLUoxetine HCl 20 MG CAPSULE PO ×2 (08:42→21:58)
[2022-02-25] MEDS: Insulin Lispro 100 UNIT/ML 3 ML VIAL SUBCUT ×3 (08:42→21:59)
[2022-02-25] MEDS: Cholecalciferol (Vitamin D3) 25 MCG TABLET 50 MCG PO (08:42)
[2022-02-25] MEDS: Metoprolol Tartrate 25 MG TABLET PO ×2 (08:42→21:58)
[2022-02-25] MEDS: Acetaminophen 325 MG TABLET 650 MG PO (08:44)
--- NOTE | 2022-02-25 09:09 | MHC.CM.PN ---
CM spoke with Patient's Contact/[employer]/Alisha @ [phone] Alisha is in [place] X2 weeks but will arrange for transport home for Patient at time of dc. Patient's family is all in [place]. Patient lives alone in an apartment and uses no DME to assist with mobility. Home/self care is the goal and CM has initiated and will follow for dc planning.Patient received no covid vax and her PCP is Dr. Hussein Potts.
[2022-02-25 11:08] LABS: PTT Heparin Drip 53.5 SEC (53-77.9)
[2022-02-25 11:31] VITALS: BP 132/52; PULSE 71; RESP 20; TEMP 36.1; O2SAT 99
--- NOTE | 2022-02-25 12:30 | PM.CNCAR ---
History of Present Illness History of Present Illness Date of Service: 02/25/22 Requesting physician: Abner Lomeli Consult reason: troponin elevation Chief complaint: epigastric pain/elevated troponin Narrative: I was consulted to see Orly in cardiology consultation today because of elevated troponin. History was obtained with help of physician scientist and patient's next of kin at bedside. Patient present to the hospital because of 3 days onset of intermittent epigastric discomfort which she describes as burning discomfort especially worse after she is eating associated with nausea without vomiting and headache and dizziness. When she came to the Emergency EKG was nonischemic. However troponin was done and subsequent troponin shows rising troponin pattern which are consistent with myocardial injury. At any point time she did not have any chest pain and the pain is always induced by eating. She did not have any exertional symptoms. Her nausea and pain has improved. Her EKG continues to be nonischemic. Cardiology consult was sort because of rise and fall of troponins. She denies any prior cardiac history. Generally very active around the house. Review of Systems Constitutional: Constitutional: Reports no additional constitutional complaints Eyes: Eyes: Reports no additional eye complaints Cardiovascular: Cardiovascular: Denies chest pain, Denies syncope, Denies lightheadedness, Denies Loss of Consciousness, Denies palpitations and Denies dyspnea Respiratory: Respiratory: Reports no additional respiratory complaints and Denies dyspnea Gastrointestinal: Gastrointestinal: Reports nausea and Reports other (Epigastric pain) Genitourinary: Genitourinary: Reports no additional female genitourinary complaints Musculoskeletal: Musculoskeletal: Reports no additional musculoskeletal complaints Neurologic: Reports system reviewed and no additional complaints, except as documented and Denies syncope Endocrine: Endocrine: Denies palpitations [facility] Past Medical History Medical History Arthritis Diabetes Fibromyalgia HTN (hypertension) Social History Social History Alcohol intake: never Patient Tobacco Use Status: Never used Tobacco service: No Current occupational status: unemployed Current occupation: right handed Gender identity: Female Meds Allergies Allergy/AdvReac Type Severity Reaction Status Date / Time iodine [IODINE] Allergy Intermediate NAUSEA Verified 08/31/20 13:06 SHELLFISH Allergy Intermediate NAUSEA Uncoded 08/31/20 13:06 fish Allergy Unknown Unknown Uncoded 08/31/20 13:06 Active Medications: Current Medications Acetaminophen (Acetaminophen 325 Mg Tablet) 650 mg PO Q6H PRN PRN Reason: Pain, Mild (Pain Scale 1-3) Last Admin: 02/25/22 08:44 Dose: 650 mg Al Hydroxide/Mg Hydroxide (Magnesium Hydrox/Alum Hydrox 30 Ml Oral.Susp) 15 ml PO Q4H PRN PRN Reason: epigastric pain Aspirin (Aspirin Enteric Coated 81 Mg Tablet.Dr) 81 mg PO DAILY [facility] Last Admin: 02/25/22 08:41 Dose: 81 mg Atorvastatin Calcium (Atorvastatin Calcium 40 Mg Tablet) 40 mg PO DAILY [facility] Last Admin: 02/25/22 08:41 Dose: 40 mg Dextrose (Dextrose 50 % 25 Gm/50 Ml Syringe) 25 gm IVPUSH Q15M PRN; Protocol PRN Reason: per Hypoglycemia Standing Ord. Fluoxetine HCl (Fluoxetine Hcl 20 Mg Capsule) 20 mg PO BID [facility] Last Admin: 02/25/22 08:42 Dose: 20 mg Gabapentin (Gabapentin 100 Mg Capsule) 100 mg PO BEDTIME [facility] Last Admin: 02/24/22 22:10 Dose: 100 mg Glucose (Glucose Gel 15 Gm Gel..Gram.) 15 gm PO Q15M PRN; Protocol PRN Reason: per Hypoglycemia Standing Ord. Heparin Sodium (Porcine) (Heparin Sodium,Porcine 5,000 Unit/Ml Vial) 1,900 unit 40 unit/kg (1900 unit) IVPUSH PROTOCOL BOLUS PRN; Protocol PRN Reason: 40 unit/kg - Heparin Protocol Last Admin: 02/25/22 04:29 Dose: 1,900 unit Heparin Sodium (Porcine) (Heparin Sodium,Porcine 5,000 Unit/Ml Vial) 3,800 unit 80 unit/kg (3800 unit) IVPUSH PROTOCOL BOLUS PRN; Protocol PRN Reason: 80 unit/kg - Heparin Protocol Heparin Sodium/Sodium Chloride (Heparin Sodium,Porcine/1/2ns) 25,000 unit in 250 mls @ 0 mls/hr IVCONT .Q0M [facility]; Protocol Last Titration: 02/25/22 11:12 Dose: 12 units/kg/hr, 5.65 mls/hr Insulin Human Lispro (Insulin Lispro 100 Unit/Ml 3 Ml Vial) 0 unit SUBCUT QIDACHS [facility]; Protocol Last Admin: 02/25/22 11:33 Dose: 8 unit Latanoprost (Latanoprost 0.005 % Ophth [place] 2.5 Ml Drops) 1 drop EYE-BOTH BEDTIME [facility] Last Admin: 02/24/22 22:11 Dose: Not Given Melatonin (Melatonin 3 Mg Tablet) 3 mg PO BEDTIME PRN PRN Reason: Insomnia Metoprolol Tartrate (Metoprolol Tartrate 25 Mg Tablet) 25 mg PO BID [facility]; Protocol Last Admin: 02/25/22 08:42 Dose: 25 mg Non-Formulary Medication (Netarsudil [Rhopressa]) 1 drop EYE-BOTH DAILY@1400 [facility] Omeprazole (Omeprazole 20 Mg Capsule.Dr) 20 mg PO BID@0630,1630 [facility] Last Admin: 02/25/22 06:51 Dose: 20 mg Ondansetron HCl (Ondansetron Hcl 4 Mg/2 Ml Vial) 4 mg IVPUSH Q8H PRN PRN Reason: Nausea and Vomiting Pharmacy Consult (Consult Rx Perform Med Rec) 1 each MISCELLANE ONCE PRN PRN Reason: Consult order Sodium Chloride (0.9 % Sodium Chloride Flush 3 Ml Syringe) 3 ml IVFLUSH QSHIFT [facility] Last Admin: 02/25/22 08:42 Dose: Not Given Vitamin D (Cholecalciferol (Vitamin D3) 25 Mcg Tablet) 50 mcg PO DAILY [facility] Last Admin: 02/25/22 08:42 Dose: 50 mcg Home Medications Medication Instructions Recorded Confirmed Last Taken Type acetaminophen 500 mg tablet 1,000 mg PO Q8H PRN pain 08/31/20 02/24/22 02/21/22 History aspirin 81 mg tablet,delayed 81 mg PO DAILY 08/31/20 02/24/22 02/21/22 History release fluoxetine 20 mg capsule 20 mg PO BID 08/31/20 02/24/22 02/21/22 History gabapentin 100 mg capsule 100 mg PO BEDTIME 08/31/20 02/24/22 02/21/22 History lancets 33 gauge #100 ea 08/31/20 Unknown History lisinopril 5 mg tablet 5 mg PO DAILY 08/31/20 02/24/22 02/21/22 History pen needle, diabetic 32 gauge x #50 ea 08/31/20 Unknown History cholecalciferol (vitamin D3) 50 1 tab PO DAILY 02/24/22 02/24/22 02/21/22 History mcg (2,000 unit) tablet dulaglutide 1.5 mg/0.5 mL 1.5 mg subcut TH@0900 02/24/22 02/24/22 02/21/22 History subcutaneous pen injector (Trulicity) latanoprost 0.005 % eye drops 1 drp ophthalmic (eye) BEDTIME 02/24/22 02/24/22 02/21/22 History netarsudil 0.02 % eye drops 1 drp ophthalmic (eye) DAILY@1400 02/24/22 02/24/22 02/21/22 History (Rhopressa) omeprazole 20 mg capsule,delayed 1 cap PO DAILY@0630 02/24/22 02/24/22 02/21/22 History release Physical Exam Vital Signs: Vital Signs: Last Vital Signs Temp 97.0 F 02/25/22 11:31 Pulse 71 02/25/22 11:31 Resp 20 02/25/22 11:31 BP 132/52 L 02/25/22 11:31 Pulse Ox 99 02/25/22 11:31 O2 Del Method 02/25/22 11:31 BMI result Body Mass Index 20.9 Const: General: cooperative, comfortable, no acute distress, alert and awake Nutritional Appearance: thin Orientation/consciousness: patient oriented x3 HEENT: Head: Yes normocephalic and Yes atraumatic Neck: Neck: Yes trachea midline, Yes supple and Yes no JVD Chest: Chest palpation & inspection: normal inspection of the chest Resp: Effort & Inspection: normal respiratory effort Auscultation: clear to auscultation bilaterally Cardio: Jugular venous distension: no JVD Rate: regular rate Rhythm: regular rhythm Heart sounds: S1 normal heart sound present, S2 normal heart sound present, no click, no gallops and no murmurs GI: Auscultation: normal bowel sounds Skin: General skin exam: no rashes or lesions noted Neuro: General: patient oriented x3 and no focal motor deficits Extrem: General: Yes no clubbing, cyanosis or edema Objective Labs and Meds Result diagrams: 02/25/22 06:05 02/23/22 15:20 Lab results: Laboratory Results - last 24 hr 02/24/22 02/24/22 02/24/22 12:57 14:31 17:16 WBC RBC Hgb Hct MCV MCH MCHC RDW Plt Count MPV Absolute Nucleated RBC Nucleated RBC % (auto) PT 12.6 INR 1.1 aPTT Heparin Protocol 42.5 L POC Glucose 128 H Iron TIBC % Saturation Unsat Iron Binding Ferritin Troponin I High Sens 198.1 H* D Triglycerides Cholesterol LDL Cholesterol, Calc HDL Cholesterol 02/24/22 02/24/22 02/24/22 19:03 20:31 21:34 WBC RBC Hgb Hct MCV MCH MCHC RDW Plt Count MPV Absolute Nucleated RBC Nucleated RBC % (auto) PT INR aPTT Heparin Protocol 88.2 H D POC Glucose 186 H Iron TIBC % Saturation Unsat Iron Binding Ferritin Troponin I High Sens 151.6 H* Triglycerides Cholesterol LDL Cholesterol, Calc HDL Cholesterol 02/25/22 02/25/22 02/25/22 03:39 06:05 06:05 WBC 6.7 RBC 4.44 Hgb 10.8 L Hct 33.9 L MCV 76.4 L MCH 24.3 L MCHC 31.9 RDW 12.6 Plt Count 414 H MPV 9.3 L Absolute Nucleated RBC 0.000 Nucleated RBC % (auto) 0.0 PT 12.0 12.2 INR 1.0 1.1 aPTT Heparin Protocol 41.7 L D POC Glucose Iron TIBC % Saturation Unsat Iron Binding Ferritin Troponin I High Sens Triglycerides Cholesterol LDL Cholesterol, Calc HDL Cholesterol 02/25/22 02/25/22 02/25/22 06:05 06:05 07:29 WBC RBC Hgb Hct MCV MCH MCHC RDW Plt Count MPV Absolute Nucleated RBC Nucleated RBC % (auto) PT INR aPTT Heparin Protocol POC Glucose 160 H Iron 20 L TIBC 284 % Saturation 7 L Unsat Iron Binding 264 Ferritin 50 Troponin I High Sens Triglycerides 128 Cholesterol 172 LDL Cholesterol, Calc 111 HDL Cholesterol 36 02/25/22 02/25/22 10:17 11:16 WBC RBC Hgb Hct MCV MCH MCHC RDW Plt Count MPV Absolute Nucleated RBC Nucleated RBC % (auto) PT INR aPTT Heparin Protocol 53.5 D POC Glucose 316 H Iron TIBC % Saturation Unsat Iron Binding Ferritin Troponin I High Sens Triglycerides Cholesterol LDL Cholesterol, Calc HDL Cholesterol Assessment and Plan (1) Elevated troponin: Status: Acute Patient with elevated troponin with rise and fall consistent with myocardial injury. However symptoms are suggestive of gastritis. EKG is no ischemic changes. Rise and fall in troponins concerning. This was discussed with the patient and patient's family at bedside with help of physician scientist. Needs further investigation. I do not think patient requires cardiac catheterization at this point in time. However she require ischemic evaluation would suggest her to undergo or myocardial perfusion imaging as inpatient with a vaso dilator. She has multiple risk factors for coronary disease. For now continue with IV heparin for 48-72 hours. Also continue aspirin, statins and metoprolol. Will also give treatment for potential gastritis. Findings were discussed with the primary team. Will schedule for myocardial perfusion imaging during this hospitalization Procedures Date of Service Date of Service: 02/25/22
--- NOTE | 2022-02-25 14:14 | HO.PM.IMPN ---
Subjective Subjective Date of Service: 02/25/22 Interval History: This history was taken in Lithuanian from the patient. Epigastric pain resolved No chest pain Lightheadedness resolved No dyspnea Review of Systems Review of Systems: Yes all other systems are reviewed and are negative Physical Exam Vital Signs: Vital Signs: Last Vital Signs Temp 97.0 F 02/25/22 11:31 Pulse 71 02/25/22 11:31 Resp 20 02/25/22 11:31 BP 132/52 L 02/25/22 11:31 Pulse Ox 99 02/25/22 11:31 O2 Del Method 02/25/22 11:31 BMI result Body Mass Index 20.9 Gen: in no acute distress HEENT: sclera anicteric, moist mucus membranes Neck: supple Lungs: clear to auscultation bilaterally Heart: regular rate and rhythm, no murmurs Abd: soft, non-tender, non-distended Ext: no edema Skin: warm/well-perfused Neuro: alert and oriented x3, no focal findings Psych: appropriate affect Objective Data Active Medications Acetaminophen (Acetaminophen 325 Mg Tablet) 650 mg PO Q6H PRN PRN Reason: Pain, Mild (Pain Scale 1-3) Last Admin: 02/25/22 08:44 Dose: 650 mg Documented By: VAMSI Al Hydroxide/Mg Hydroxide (Magnesium Hydrox/Alum Hydrox 30 Ml Oral.Susp) 15 ml PO Q4H PRN PRN Reason: epigastric pain Aspirin (Aspirin Enteric Coated 81 Mg Tablet.) 81 mg PO DAILY [facility] Last Admin: 02/25/22 08:41 Dose: 81 mg Documented By: VAMSI Atorvastatin Calcium (Atorvastatin Calcium 40 Mg Tablet) 40 mg PO DAILY [facility] Last Admin: 02/25/22 08:41 Dose: 40 mg Documented By: VAMSI Dextrose (Dextrose 50 % 25 Gm/50 Ml Syringe) 25 gm IVPUSH Q15M PRN; Protocol PRN Reason: per Hypoglycemia Standing Ord. Fluoxetine HCl (Fluoxetine Hcl 20 Mg Capsule) 20 mg PO BID [facility] Last Admin: 02/25/22 08:42 Dose: 20 mg Documented By: VAMSI Gabapentin (Gabapentin 100 Mg Capsule) 100 mg PO BEDTIME [facility] Last Admin: 02/24/22 22:10 Dose: 100 mg Documented By: BÁRBARA Glucose (Glucose Gel 15 Gm Gel..Gram.) 15 gm PO Q15M PRN; Protocol PRN Reason: per Hypoglycemia Standing Ord. Heparin Sodium (Porcine) (Heparin Sodium,Porcine 5,000 Unit/Ml Vial) 1,900 unit 40 unit/kg (1900 unit) IVPUSH PROTOCOL BOLUS PRN; Protocol PRN Reason: 40 unit/kg - Heparin Protocol Last Admin: 02/25/22 04:29 Dose: 1,900 unit Documented By: ROSIE Heparin Sodium (Porcine) (Heparin Sodium,Porcine 5,000 Unit/Ml Vial) 3,800 unit 80 unit/kg (3800 unit) IVPUSH PROTOCOL BOLUS PRN; Protocol PRN Reason: 80 unit/kg - Heparin Protocol Heparin Sodium/Sodium Chloride (Heparin Sodium,Porcine/1/2ns) 25,000 unit in 250 mls @ 0 mls/hr IVCONT .Q0M [facility]; Protocol Last Titration: 02/25/22 11:12 Dose: 12 units/kg/hr, 5.65 mls/hr Documented By: VAMSI Co-signed By: KAYDEN Insulin Human Lispro (Insulin Lispro 100 Unit/Ml 3 Ml Vial) 0 unit SUBCUT QIDACHS [facility]; Protocol Last Admin: 02/25/22 11:33 Dose: 8 unit Documented By: VAMSI Latanoprost (Latanoprost 0.005 % Ophth [place] 2.5 Ml Drops) 1 drop EYE-BOTH BEDTIME [facility] Last Admin: 02/24/22 22:11 Dose: Not Given Documented By: BÁRBARA Non-Admin Reason: Med Not Available Melatonin (Melatonin 3 Mg Tablet) 3 mg PO BEDTIME PRN PRN Reason: Insomnia Metoprolol Tartrate (Metoprolol Tartrate 25 Mg Tablet) 25 mg PO BID [facility]; Protocol Last Admin: 02/25/22 08:42 Dose: 25 mg Documented By: VAMSI Non-Formulary Medication (Netarsudil [Rhopressa]) 1 drop EYE-BOTH DAILY@1400 [facility] Omeprazole (Omeprazole 20 Mg Capsule.) 20 mg PO BID@0630,1630 [facility] Last Admin: 02/25/22 06:51 Dose: 20 mg Documented By: ROSIE Ondansetron HCl (Ondansetron Hcl 4 Mg/2 Ml Vial) 4 mg IVPUSH Q8H PRN PRN Reason: Nausea and Vomiting Pharmacy Consult (Consult Rx Perform Med Rec) 1 each MISCELLANE ONCE PRN PRN Reason: Consult order Sodium Chloride (0.9 % Sodium Chloride Flush 3 Ml Syringe) 3 ml IVFLUSH QSHIFT [facility] Last Admin: 02/25/22 08:42 Dose: Not Given Documented By: VAMSI Non-Admin Reason: IV Running Vitamin D (Cholecalciferol (Vitamin D3) 25 Mcg Tablet) 50 mcg PO DAILY [facility] Last Admin: 02/25/22 08:42 Dose: 50 mcg Documented By: VAMSI Labs CBC & Chem 7: 02/25/22 06:05 02/23/22 15:20 Labs: Laboratory Results - last 24 hr 02/24/22 02/24/22 02/24/22 14:31 17:16 19:03 MCV MCH MCHC RDW Plt Count MPV Absolute Nucleated RBC Nucleated RBC % (auto) PT 12.6 INR 1.1 aPTT Heparin Protocol 42.5 L POC Glucose 128 H Iron TIBC % Saturation Unsat Iron Binding Ferritin Troponin I High Sens 151.6 H* Triglycerides Cholesterol LDL Cholesterol, Calc HDL Cholesterol 02/24/22 02/24/22 02/25/22 20:31 21:34 03:39 MCV MCH MCHC RDW Plt Count MPV Absolute Nucleated RBC Nucleated RBC % (auto) PT 12.0 INR 1.0 aPTT Heparin Protocol 88.2 H D 41.7 L D POC Glucose 186 H Iron TIBC % Saturation Unsat Iron Binding Ferritin Troponin I High Sens Triglycerides Cholesterol LDL Cholesterol, Calc HDL Cholesterol 02/25/22 02/25/22 02/25/22 06:05 06:05 06:05 MCV 76.4 L MCH 24.3 L MCHC 31.9 RDW 12.6 Plt Count 414 H MPV 9.3 L Absolute Nucleated RBC 0.000 Nucleated RBC % (auto) 0.0 PT 12.2 INR 1.1 aPTT Heparin Protocol POC Glucose Iron 20 L TIBC 284 % Saturation 7 L Unsat Iron Binding 264 Ferritin Troponin I High Sens Triglycerides 128 Cholesterol 172 LDL Cholesterol, Calc 111 HDL Cholesterol 36 02/25/22 02/25/22 02/25/22 06:05 07:29 10:17 MCV MCH MCHC RDW Plt Count MPV Absolute Nucleated RBC Nucleated RBC % (auto) PT INR aPTT Heparin Protocol 53.5 D POC Glucose 160 H Iron TIBC % Saturation Unsat Iron Binding Ferritin 50 Troponin I High Sens Triglycerides Cholesterol LDL Cholesterol, Calc HDL Cholesterol 02/25/22 11:16 MCV MCH MCHC RDW Plt Count MPV Absolute Nucleated RBC Nucleated RBC % (auto) PT INR aPTT Heparin Protocol POC Glucose 316 H Iron TIBC % Saturation Unsat Iron Binding Ferritin Troponin I High Sens Triglycerides Cholesterol LDL Cholesterol, Calc HDL Cholesterol Assessment and Plan (1) Elevated troponin: Status: Acute (2) NSTEMI (non-ST elevated myocardial infarction): Status: Acute Plan d#2 72yo F with HTN, DM2, chronic gastritis presenting with epigastric pain, nausea, and lightheadedness and found to have elevated Tn-I # NSTEMI - IV heparinization, Cardiology consulted- plan inpatient MPS. continue aspirin, high-intensity statin, metoprolol # HTN - metoprolol + lisionpril # gastritis - PPI # DM2 - correction-dose lispro # fibromyalgia - continue gabapentin # mood disorder - fluoxetine # VTE ppx - heparinization In my clinical judgment, the patient requires continued hospitalization for the following reasons: heparinization, inpt MPS Quality Stroke Does the patient have a stroke diagnosis?: No VTE Prior VTE?: No VTE Risk Level:: Medical - moderate - high VTE Device Contraindication: Treatment Not Indicated VTE Drug Contraindication: N/A - Med Ordered
[2022-02-25 15:04] VITALS: BP 115/56; PULSE 71; RESP 18; TEMP 36.7; O2SAT 99
--- NOTE | 2022-02-25 16:20 | PC.NURSE ---
care assumed for pt at 1300, report received. Pt resting in bed. no c/o pain. high fall risk precautions in place, safety precautions taken. media executive per JUL. call padilla within reach, bed alarm on, nonskid socks in place.
[2022-02-25 17:37] LABS: PTT Heparin Drip 48.2 SEC (53-77.9)
[2022-02-25 19:01] VITALS: BP 124/59; PULSE 77; RESP 18; TEMP 36.3; O2SAT 96
[2022-02-25] MEDS: Gabapentin 100 MG CAPSULE PO (21:58)
[2022-02-25 23:13] VITALS: BP 116/58; PULSE 69; RESP 18; TEMP 36.7; O2SAT 100
[2022-02-26 00:50] LABS: PTT Heparin Drip 80.6 SEC (53-77.9)
[2022-02-26 02:45] VITALS: BP 113/53; PULSE 66; RESP 18; TEMP 36.7; O2SAT 100
[2022-02-26] MEDS: Omeprazole 20 MG CAPSULE.DR PO ×2 (06:33→16:41)
[2022-02-26 07:38] VITALS: BP 123/62; PULSE 73; RESP 20; TEMP 36.6; O2SAT 98
[2022-02-26] MEDS: Cholecalciferol (Vitamin D3) 25 MCG TABLET 50 MCG PO (08:22)
[2022-02-26] MEDS: Atorvastatin Calcium 40 MG TABLET PO (08:22)
[2022-02-26] MEDS: Metoprolol Tartrate 25 MG TABLET PO ×2 (08:22→22:22)
[2022-02-26] MEDS: FLUoxetine HCl 20 MG CAPSULE PO ×2 (08:22→22:22)
[2022-02-26] MEDS: Aspirin Enteric Coated 81 MG TABLET.DR PO (08:22)
[2022-02-26] MEDS: Heparin Sodium,Porcine 5,000 UNIT/ML VIAL 1900 UNIT IVPUSH (08:25)
[2022-02-26] MEDS: Heparin Sodium,Porcine/1/2NS 25,000 UNIT/250 ML IV.SOLN 6.59 UNIT IVCONT (08:25)
--- NOTE | 2022-02-26 10:27 | HO.PM.IMPN ---
Subjective Subjective Date of Service: 02/26/22 Interval History: This history was taken in Slovak from the patient. Epigastric pain resolved No chest pain or dyspnea Review of Systems Review of Systems: Yes all other systems are reviewed and are negative Physical Exam Vital Signs: Vital Signs: Last Vital Signs Temp 97.9 F 02/26/22 07:38 Pulse 73 02/26/22 07:38 Resp 20 02/26/22 07:38 BP 123/62 02/26/22 07:38 Pulse Ox 98 02/26/22 07:38 O2 Del Method 02/26/22 07:38 BMI result Body Mass Index 20.9 Gen: in no acute distress HEENT: sclera anicteric, moist mucus membranes Neck: supple Lungs: clear to auscultation bilaterally Heart: regular rate and rhythm, no murmurs Abd: soft, non-tender, non-distended Ext: no edema Skin: warm/well-perfused Neuro: alert and oriented x3, no focal findings Psych: appropriate affect Objective Data Active Medications Acetaminophen (Acetaminophen 325 Mg Tablet) 650 mg PO Q6H PRN PRN Reason: Pain, Mild (Pain Scale 1-3) Last Admin: 02/25/22 08:44 Dose: 650 mg Documented By: VAMSI Al Hydroxide/Mg Hydroxide (Magnesium Hydrox/Alum Hydrox 30 Ml Oral.Susp) 15 ml PO Q4H PRN PRN Reason: epigastric pain Aspirin (Aspirin Enteric Coated 81 Mg Tablet.) 81 mg PO DAILY [facility] Last Admin: 02/26/22 08:22 Dose: 81 mg Documented By: SANDRA Atorvastatin Calcium (Atorvastatin Calcium 40 Mg Tablet) 40 mg PO DAILY [facility] Last Admin: 02/26/22 08:22 Dose: 40 mg Documented By: SANDRA Dextrose (Dextrose 50 % 25 Gm/50 Ml Syringe) 25 gm IVPUSH Q15M PRN; Protocol PRN Reason: per Hypoglycemia Standing Ord. Fluoxetine HCl (Fluoxetine Hcl 20 Mg Capsule) 20 mg PO BID [facility] Last Admin: 02/26/22 08:22 Dose: 20 mg Documented By: SANDRA Gabapentin (Gabapentin 100 Mg Capsule) 100 mg PO BEDTIME [facility] Last Admin: 02/25/22 21:58 Dose: 100 mg Documented By: BÁRBARA Glucose (Glucose Gel 15 Gm Gel..Gram.) 15 gm PO Q15M PRN; Protocol PRN Reason: per Hypoglycemia Standing Ord. Heparin Sodium (Porcine) (Heparin Sodium,Porcine 5,000 Unit/Ml Vial) 1,900 unit 40 unit/kg (1900 unit) IVPUSH PROTOCOL BOLUS PRN; Protocol PRN Reason: 40 unit/kg - Heparin Protocol Last Admin: 02/26/22 08:25 Dose: 1,900 unit Documented By: SANDRA Heparin Sodium (Porcine) (Heparin Sodium,Porcine 5,000 Unit/Ml Vial) 3,800 unit 80 unit/kg (3800 unit) IVPUSH PROTOCOL BOLUS PRN; Protocol PRN Reason: 80 unit/kg - Heparin Protocol Heparin Sodium/Sodium Chloride (Heparin Sodium,Porcine/1/2ns) 25,000 unit in 250 mls @ 0 mls/hr IVCONT .Q0M [facility]; Protocol Last Admin: 02/26/22 08:25 Dose: 14 units/kg/hr, 6.59 mls/hr Documented By: SANDRA Co-signed By: NIKI Insulin Human Lispro (Insulin Lispro 100 Unit/Ml 3 Ml Vial) 0 unit SUBCUT QIDACHS [facility]; Protocol Last Admin: 02/26/22 08:15 Dose: Not Given Documented By: SANDRA Non-Admin Reason: No Insulin Coverage Latanoprost (Latanoprost 0.005 % Ophth [place] 2.5 Ml Drops) 1 drop EYE-BOTH BEDTIME [facility] Last Admin: 02/25/22 21:59 Dose: Not Given Documented By: BÁRBARA Non-Admin Reason: Med Not Available Melatonin (Melatonin 3 Mg Tablet) 3 mg PO BEDTIME PRN PRN Reason: Insomnia Metoprolol Tartrate (Metoprolol Tartrate 25 Mg Tablet) 25 mg PO BID [facility]; Protocol Last Admin: 02/26/22 08:22 Dose: 25 mg Documented By: SANDRA Non-Formulary Medication (Netarsudil [Rhopressa]) 1 drop EYE-BOTH DAILY@1400 [facility] Omeprazole (Omeprazole 20 Mg Capsule.) 20 mg PO BID@0630,1630 [facility] Last Admin: 02/26/22 06:33 Dose: 20 mg Documented By: BÁRBARA Ondansetron HCl (Ondansetron Hcl 4 Mg/2 Ml Vial) 4 mg IVPUSH Q8H PRN PRN Reason: Nausea and Vomiting Pharmacy Consult (Consult Rx Perform Med Rec) 1 each MISCELLANE ONCE PRN PRN Reason: Consult order Sodium Chloride (0.9 % Sodium Chloride Flush 3 Ml Syringe) 3 ml IVFLUSH QSHIFT [facility] Last Admin: 02/26/22 08:23 Dose: Not Given Documented By: SANDRA Non-Admin Reason: IV Running Vitamin D (Cholecalciferol (Vitamin D3) 25 Mcg Tablet) 50 mcg PO DAILY [facility] Last Admin: 02/26/22 08:22 Dose: 50 mcg Documented By: SANDRA Labs CBC & Chem 7: 02/25/22 06:05 02/23/22 15:20 Labs: Laboratory Results - last 24 hr 02/25/22 02/25/22 02/25/22 10:17 11:16 15:55 aPTT Heparin Protocol 53.5 D POC Glucose 316 H 89 02/25/22 02/25/22 02/26/22 17:22 19:36 00:29 aPTT Heparin Protocol 48.2 L 80.6 H D POC Glucose 219 H 02/26/22 02/26/22 02/26/22 04:03 06:49 07:13 aPTT Heparin Protocol 26.0 L D 43.0 L D POC Glucose 143 H Assessment and Plan (1) Elevated troponin: Status: Acute (2) NSTEMI (non-ST elevated myocardial infarction): Status: Acute Plan d#3 72yo F with HTN, DM2, chronic gastritis presenting with epigastric pain, nausea, and lightheadedness and found to have elevated Tn-I # NSTEMI - continue IV heparinization x72h, Cardiology consulted- plan inpatient MPS. continue aspirin, high-intensity statin, metoprolol in the meanwhile. # HTN - controlled on metoprolol + lisinopril # gastritis - continue bid PPI # DM2 - correction-dose lispro # fibromyalgia - continue gabapentin # mood disorder - fluoxetine # VTE ppx - heparinization In my clinical judgment, the patient requires continued hospitalization for the following reasons: heparinization, inpt MPS Quality Stroke Does the patient have a stroke diagnosis?: No VTE Prior VTE?: No VTE Risk Level:: Medical - moderate - high VTE Device Contraindication: Treatment Not Indicated VTE Drug Contraindication: N/A - Med Ordered
--- NOTE | 2022-02-26 11:45 | PM.PNCARD ---
Subjective Subjective Date of Service: 02/26/22 Principal diagnosis: Elevated troponin Interval history: Patient denies any chest pain or abdominal pain. Hemodynamically stable. No arrhythmias noted. Review of Systems Review of Systems Yes all other systems are reviewed and are negative Physical Exam Vital Signs: Last Vital Signs Temp 97.9 F 02/26/22 07:38 Pulse 73 02/26/22 07:38 Resp 20 02/26/22 07:38 BP 123/62 02/26/22 07:38 Pulse Ox 98 02/26/22 07:38 O2 Del Method 02/26/22 07:38 BMI result Body Mass Index 20.9 Const General: cooperative, comfortable, no acute distress, alert and awake Nutritional Appearance: thin Orientation/consciousness: patient oriented x3 Neck Neck: Yes trachea midline, Yes supple and Yes no JVD Chest Chest palpation & inspection: normal inspection of the chest Resp Effort & Inspection: normal respiratory effort Auscultation: clear to auscultation bilaterally Cardio Jugular venous distension: no JVD Rate: regular rate Rhythm: regular rhythm Heart sounds: S1 normal heart sound present, S2 normal heart sound present, no click, no gallops and no murmurs GI Auscultation: normal bowel sounds Neuro General: patient oriented x3 and no focal motor deficits Extrem General: Yes no clubbing, cyanosis or edema Objective Labs and Meds Result diagrams: 02/25/22 06:05 02/23/22 15:20 Lab results: Laboratory Results - last 24 hr 02/25/22 02/25/22 02/25/22 15:55 17:22 19:36 aPTT Heparin Protocol 48.2 L POC Glucose 89 219 H 02/26/22 02/26/22 02/26/22 00:29 04:03 06:49 aPTT Heparin Protocol 80.6 H D 26.0 L D 43.0 L D POC Glucose 02/26/22 02/26/22 07:13 11:18 aPTT Heparin Protocol POC Glucose 143 H 293 H Progress Note: A&P Assessment and plan (1) Elevated troponin: Status: Acute Assessment and Plan: Elevated troponins in this elderly woman with multiple risk factors with rise and fall consistent with myocardial injury. Only explanation is acute coronary syndrome although symptoms are very atypical and suggestive of gastritis. EKGs non revealing. Will require inpatient myocardial perfusion imaging. Continue IV heparin for total of 48-72 hours. Continue aspirin, high-intensity statins and metoprolol therapy. Obtain echocardiogram tomorrow. Also will try to see if he can do stress test tomorrow being holiday. Will continue to follow Time Spent With Patient Time: Total time spent is greater than 50% in coordination of care (as documented) at patient's floor/unit and/or counseling patient: Progress Note: Quality Stroke Does the patient have a stroke diagnosis?: No Procedures Date of Service Date of Service: 02/26/22
--- NOTE | 2022-02-26 11:49 | CA_ITS ---
Acquisition Time: 2022-02-28 09:33:10 Total Exercise Time: 00:02:00 Test Indications: ELEVATED TROPONIN Medications: Protocol: LEXISCAN Max HR: 096 BPM 64% of Pred: 150 BPM Max BP: 118/062 mmHG Max Work Load: 1.0 METS Pharmacological stress test with Lexiscan injection, while sitting and kicking her legs, with mild sob, no chest discomfort, without arrythmia, with normotensive response to injection, with nondiagnostic EKG for ischemia. In recovery she was treated with Aminophylline 75mg IVP to reverse Lexiscan. Nuclear images pending. Test reviewed with Dr Jo. Referred By: Christopher Rodriguez Overread By: BERLIN OVALLE
[2022-02-26 12:00] VITALS: BP 157/69; PULSE 68; RESP 20; TEMP 36.3; O2SAT 100
[2022-02-26] MEDS: Insulin Lispro 100 UNIT/ML 3 ML VIAL SUBCUT ×2 (12:05→22:22)
--- NOTE | 2022-02-26 14:40 | PC.NURSE ---
report received from overnight RN, media reporter per JUL. pt has no complaints of pain, nausea, or dizziness. Tolerating her diet well. Call padilla within reach, safety precautions taken.
[2022-02-26 15:17] VITALS: BP 125/62; PULSE 78; RESP 18; TEMP 36.9; O2SAT 97
[2022-02-26 15:30] LABS: PTT Heparin Drip 66.3 SEC (53-77.9)
[2022-02-26 18:59] VITALS: BP 119/60; PULSE 74; RESP 18; TEMP 36.2; O2SAT 99
[2022-02-26 20:50] LABS: PTT Heparin Drip 59.5 SEC (53-77.9)
[2022-02-26] MEDS: Gabapentin 100 MG CAPSULE PO (22:22)
[2022-02-26] MEDS: 0.9 % Sodium Chloride Flush 3 ML SYRINGE IVFLUSH (22:26)
[2022-02-26 23:04] VITALS: BP 127/59; PULSE 79; RESP 18; TEMP 37; O2SAT 100
[2022-02-27 03:40] VITALS: BP 121/60; PULSE 75; RESP 14; TEMP 36.7; O2SAT 98
[2022-02-27] MEDS: Omeprazole 20 MG CAPSULE.DR PO ×2 (06:02→17:05)
[2022-02-27 06:14] LABS: PTT Heparin Drip 56.9 SEC (53-77.9)
[2022-02-27 07:31] LABS: Glucose, Whole Blood 215 mg/dL (60-115)
[2022-02-27 07:41] VITALS: BP 133/60; PULSE 79; RESP 20; TEMP 36.5; O2SAT 97
[2022-02-27] MEDS: Insulin Lispro 100 UNIT/ML 3 ML VIAL SUBCUT ×4 (07:50→22:16)
[2022-02-27] MEDS: 0.9 % Sodium Chloride Flush 3 ML SYRINGE IVFLUSH (07:50)
[2022-02-27] MEDS: Cholecalciferol (Vitamin D3) 25 MCG TABLET 50 MCG PO (09:00)
[2022-02-27] MEDS: FLUoxetine HCl 20 MG CAPSULE PO ×2 (09:00→22:12)
[2022-02-27] MEDS: Atorvastatin Calcium 40 MG TABLET PO (09:00)
[2022-02-27] MEDS: Aspirin Enteric Coated 81 MG TABLET.DR PO (09:01)
[2022-02-27] MEDS: Metoprolol Tartrate 25 MG TABLET PO ×2 (09:01→22:35)
[2022-02-27] MEDS: Acetaminophen 325 MG TABLET 650 MG PO ×2 (09:03→22:12)
--- NOTE | 2022-02-27 10:29 | P.PNCA_ITS ---
Subjective Subjective Date of Service: 02/27/22 Principal diagnosis: Elevated troponin Interval history: She states that she feels okay. No clear cardiac symptoms like angina. Some nonspecific aches and pains in arms and legs. States she also has fibromyalgia. Seen with real estate accountant. Review of Systems Review of Systems Yes all other systems are reviewed and are negative Constitutional: Reports as per HPI Eyes: Reports as per HPI Reports as per HPI Cardiovascular: Reports as per HPI, Denies acrocyanosis, Denies cool extremities, Denies chest pain, Denies leg edema, Denies lightheadedness, Denies palpitations and Denies dyspnea Respiratory: Reports as per HPI, Reports no additional respiratory complaints and Denies dyspnea Gastrointestinal: Reports as per HPI and Reports no additional gastrointestinal complaints Genitourinary: Reports as per HPI Musculoskeletal: Reports no additional musculoskeletal complaints and Reports as per HPI Comments: Body pains Skin/Breast: Reports system reviewed and no additional complaints, except as docu Reports system reviewed and no additional complaints, except as documented and Reports as per HPI Psychiatric: Reports no additional psychiatric complaints and Reports as per HPI Endocrine: Reports no additional endocrine complaints, Reports as per HPI and Denies palpitations Hematologic/Lymphatic: Reports no additional hematologic/lymphatic complaints and Reports as per HPI Allergic/Immunologic: Reports no additional allergic/immunologic complaints and Reports as per HPI Physical Exam Vital Signs: Last Vital Signs Temp 97.7 F 02/27/22 07:41 Pulse 79 02/27/22 07:41 Resp 20 02/27/22 07:41 BP 133/60 02/27/22 07:41 Pulse Ox 97 02/27/22 07:41 O2 Del Method 02/27/22 07:41 BMI result Body Mass Index 20.9 Const General: comfortable and no acute distress Orientation/consciousness: patient oriented x3 HEENT Other: Unremarkable Head: Yes normal to inspection Neck Neck: Yes normal visual inspection Chest Chest palpation & inspection: normal inspection of the chest Resp Auscultation: clear to auscultation bilaterally Cardio Palpation: normal PMI Heart sounds: S1 normal heart sound present, S2 normal heart sound present, no gallops, no murmurs and no rubs GI Palpation (GI): Soft to palpation Back/Spine/Pelvis Other: unremarkable Skin General skin exam: no rashes or lesions noted Neuro General: patient oriented x3 Extrem General: Yes normal to inspection Psych Mental Status: mental status grossly normal Objective Labs and Meds Result diagrams: 02/25/22 06:05 02/23/22 15:20 Lab results: Laboratory Results - last 24 hr 02/26/22 02/26/22 02/26/22 11:18 14:46 16:10 aPTT Heparin Protocol 66.3 D POC Glucose 293 H 74 02/26/22 02/26/22 02/27/22 19:44 20:30 05:46 aPTT Heparin Protocol 59.5 56.9 POC Glucose 241 H 02/27/22 07:18 aPTT Heparin Protocol POC Glucose 215 H Progress Note: A&P Assessment and plan (1) Elevated troponin: Status: Acute (2) NSTEMI (non-ST elevated myocardial infarction): Status: Acute Plan Admission EKG with sinus tachycardia, right atrial enlargement; and no clear ischemic findings. In the echocardiogram, LVEF 60-65%; wall motion abnormalities not excluded due to limited endocardial definition and otherwise unremarkable. With regard troponins, level started 18 and then went up to 47 and 198 and then came down to 151. There seems to be a clear rise and fall in troponins but no overt cardiac symptoms. She is pending inpatient stress test. Disposition pending the above. Time Spent With Patient Time: Total time spent is greater than 50% in coordination of care (as documented) at patient's floor/unit and/or counseling patient: 35min. Progress Note: Quality Stroke Does the patient have a stroke diagnosis?: No Procedures Date of Service Date of Service: 02/27/22
--- NOTE | 2022-02-27 11:27 | HO.PM.IMPN ---
Subjective Subjective Date of Service: 02/27/22 Interval History: This history was taken in [place] from the patient. C/o joint pain [chronic] but no abd pain or chest pain or dyspnea Review of Systems Review of Systems: Yes all other systems are reviewed and are negative Physical Exam Vital Signs: Vital Signs: Last Vital Signs Temp 97.7 F 02/27/22 07:41 Pulse 79 02/27/22 07:41 Resp 20 02/27/22 07:41 BP 133/60 02/27/22 07:41 Pulse Ox 97 02/27/22 07:41 O2 Del Method 02/27/22 07:41 BMI result Body Mass Index 20.9 Gen: in no acute distress HEENT: sclera anicteric, moist mucus membranes Neck: supple Lungs: clear to auscultation bilaterally Heart: regular rate and rhythm, no murmurs Abd: soft, non-tender, non-distended Ext: no edema Skin: warm/well-perfused Neuro: alert and oriented x3, no focal findings Psych: appropriate affect Objective Data Active Medications Acetaminophen (Acetaminophen 325 Mg Tablet) 650 mg PO Q6H PRN PRN Reason: Pain, Mild (Pain Scale 1-3) Last Admin: 02/27/22 09:03 Dose: 650 mg Documented By: GORGE Al Hydroxide/Mg Hydroxide (Magnesium Hydrox/Alum Hydrox 30 Ml Oral.Susp) 15 ml PO Q4H PRN PRN Reason: epigastric pain Aspirin (Aspirin Enteric Coated 81 Mg Tablet.) 81 mg PO DAILY FORMERLY [facility], 1928[facility]1983 Last Admin: 02/27/22 09:01 Dose: 81 mg Documented By: GORGE Atorvastatin Calcium (Atorvastatin Calcium 40 Mg Tablet) 40 mg PO DAILY FOR[facility], [facility]1983 Last Admin: 02/27/22 09:00 Dose: 40 mg Documented By: GORGE Dextrose (Dextrose 50 % 25 Gm/50 Ml Syringe) 25 gm IVPUSH Q15M PRN; Protocol PRN Reason: per Hypoglycemia Standing Ord. Fluoxetine HCl (Fluoxetine Hcl 20 Mg Capsule) 20 mg PO BID FOR[facility]LY [facility], [facility]1983 Last Admin: 02/27/22 09:00 Dose: 20 mg Documented By: GORGE Gabapentin (Gabapentin 100 Mg Capsule) 100 mg PO BEDTIME FOR[facility], [facility]1983 Last Admin: 02/26/22 22:22 Dose: 100 mg Documented By: CHARIS Glucose (Glucose Gel 15 Gm Gel..Gram.) 15 gm PO Q15M PRN; Protocol PRN Reason: per Hypoglycemia Standing Ord. Heparin Sodium (Porcine) (Heparin Sodium,Porcine 5,000 Unit/Ml Vial) 1,900 unit 40 unit/kg (1900 unit) IVPUSH PROTOCOL BOLUS PRN; Protocol PRN Reason: 40 unit/kg - Heparin Protocol Last Admin: 02/26/22 08:25 Dose: 1,900 unit Documented By: SANDRA Heparin Sodium (Porcine) (Heparin Sodium,Porcine 5,000 Unit/Ml Vial) 3,800 unit 80 unit/kg (3800 unit) IVPUSH PROTOCOL BOLUS PRN; Protocol PRN Reason: 80 unit/kg - Heparin Protocol Heparin Sodium/Sodium Chloride (Heparin Sodium,Porcine/1/2ns) 25,000 unit in 250 mls @ 0 mls/hr IVCONT .Q0M [facility], [facility]; Protocol Last Titration: 02/27/22 06:26 Dose: 14 units/kg/hr, 6.59 mls/hr Documented By: CHARIS Co-signed By: JAMEL Insulin Human Lispro (Insulin Lispro 100 Unit/Ml 3 Ml Vial) 0 unit SUBCUT QIDACHS [facility]LY [facility], [facility]–1983; Protocol Last Admin: 02/27/22 07:50 Dose: 4 unit Documented By: GORGE Latanoprost (Latanoprost 0.005 % Ophth [place] 2.5 Ml Drops) 1 drop EYE-BOTH BEDTIME FORMERLY [facility], 1928–1983 Last Admin: 02/26/22 22:26 Dose: Not Given Documented By: CHARIS Non-Admin Reason: Patient Refused Melatonin (Melatonin 3 Mg Tablet) 3 mg PO BEDTIME PRN PRN Reason: Insomnia Metoprolol Tartrate (Metoprolol Tartrate 25 Mg Tablet) 25 mg PO BID [facility], [facility]; Protocol Last Admin: 02/27/22 09:01 Dose: 25 mg Documented By: GORGE Non-Formulary Medication (Netarsudil [Rhopressa]) 1 drop EYE-BOTH DAILY@1400 DARCIE Omeprazole (Omeprazole 20 Mg Capsule.) 20 mg PO BID@0630,1630 FOR[facility], [facility]–1983 Last Admin: 02/27/22 06:02 Dose: 20 mg Documented By: CHARIS Ondansetron HCl (Ondansetron Hcl 4 Mg/2 Ml Vial) 4 mg IVPUSH Q8H PRN PRN Reason: Nausea and Vomiting Pharmacy Consult (Consult Rx Perform Med Rec) 1 each MISCELLANE ONCE PRN PRN Reason: Consult order Sodium Chloride (0.9 % Sodium Chloride Flush 3 Ml Syringe) 3 ml IVFLUSH QSHIFT FOR[facility], [facility]1983 Last Admin: 02/27/22 07:50 Dose: 3 ml Documented By: GORGE Vitamin D (Cholecalciferol (Vitamin D3) 25 Mcg Tablet) 50 mcg PO DAILY [facility], [facility]1983 Last Admin: 02/27/22 09:00 Dose: 50 mcg Documented By: GORGE Labs CBC & Chem 7: 02/25/22 06:05 02/23/22 15:20 Labs: Laboratory Results - last 24 hr 02/26/22 02/26/22 02/26/22 11:18 14:46 16:10 aPTT Heparin Protocol 66.3 D POC Glucose 293 H 74 02/26/22 02/26/22 02/27/22 19:44 20:30 05:46 aPTT Heparin Protocol 59.5 56.9 POC Glucose 241 H 02/27/22 07:18 aPTT Heparin Protocol POC Glucose 215 H TTE 02/24/22 ?1.? Normal LV systolic function with impaired relaxation ? ? ? filling pattern? 2.? Normal cardiac valvular Doppler? 3.? No gross pericardial effusion? Assessment and Plan (1) Elevated troponin: Status: Acute (2) NSTEMI (non-ST elevated myocardial infarction): Status: Acute Plan d#4 72yo F with HTN, DM2, chronic gastritis presenting with epigastric pain, nausea, and lightheadedness and found to have elevated Tn-I # NSTEMI - continue IV heparinization x72h [done at 1500 today] Cardiology consulted- plan inpatient MPS to be done tomorrow. continue aspirin, high-intensity statin, and metoprolol. # HTN - controlled on metoprolol + lisinopril # gastritis - continue bid PPI # DM2 - correction-dose lispro # fibromyalgia - continue gabapentin # mood disorder - fluoxetine # VTE ppx - heparinization In my clinical judgment, the patient requires continued hospitalization for the following reasons: heparinization, inpt MPS Quality Stroke Does the patient have a stroke diagnosis?: No VTE Prior VTE?: No VTE Risk Level:: Medical - moderate - high VTE Device Contraindication: Treatment Not Indicated VTE Drug Contraindication: N/A - Med Ordered
[2022-02-27 11:35] LABS: Glucose, Whole Blood 219 mg/dL (60-115)
[2022-02-27 12:00] VITALS: BP 144/66; PULSE 84; RESP 20; TEMP 35.9; O2SAT 98
[2022-02-27] MEDS: Heparin Sodium,Porcine/1/2NS 25,000 UNIT/250 ML IV.SOLN 6.59 UNIT IVCONT (13:02)
[2022-02-27] MEDS: ondansetron HCL 4 MG/2 ML VIAL IVPUSH (13:13)
[2022-02-27 15:14] VITALS: BP 122/75; PULSE 79; RESP 18; TEMP 37.3; O2SAT 97
[2022-02-27 16:16] LABS: Glucose, Whole Blood 176 mg/dL (60-115)
[2022-02-27 19:10] VITALS: BP 135/60; PULSE 69; RESP 18; TEMP 36.7; O2SAT 98
[2022-02-27 19:58] LABS: Glucose, Whole Blood 169 mg/dL (60-115)
[2022-02-27] MEDS: Gabapentin 100 MG CAPSULE PO (22:09)
[2022-02-27 23:19] VITALS: BP 126/63; PULSE 85; RESP 18; TEMP 37.8; O2SAT 98
[2022-02-27] MEDS: Latanoprost 0.005 % Ophth Sol 2.5 ML DROPS 1 DROP EYE-BOTH (23:29)
[2022-02-28] MEDS: 0.9 % Sodium Chloride Flush 3 ML SYRINGE IVFLUSH ×2 (01:15→06:42)
[2022-02-28 03:26] VITALS: BP 114/54; PULSE 72; RESP 18; TEMP 36.8; O2SAT 97
[2022-02-28] MEDS: Omeprazole 20 MG CAPSULE.DR PO (06:44)
[2022-02-28 07:15] VITALS: BP 134/62; PULSE 75; RESP 16; TEMP 37.2; O2SAT 98
[2022-02-28 07:23] LABS: Glucose, Whole Blood 175 mg/dL (60-115)
[2022-02-28] MEDS: Atorvastatin Calcium 40 MG TABLET PO (07:40)
[2022-02-28] MEDS: Insulin Lispro 100 UNIT/ML 3 ML VIAL SUBCUT ×2 (07:41→12:09)
[2022-02-28] MEDS: FLUoxetine HCl 20 MG CAPSULE PO (07:41)
[2022-02-28] MEDS: Metoprolol Tartrate 25 MG TABLET PO (07:42)
[2022-02-28] MEDS: Aspirin Enteric Coated 81 MG TABLET.DR PO (07:42)
[2022-02-28] MEDS: Cholecalciferol (Vitamin D3) 25 MCG TABLET 50 MCG PO (07:42)
--- NOTE | 2022-02-28 10:19 | P.PNCA_ITS ---
Subjective Subjective Date of Service: 02/28/22 Principal diagnosis: Elevated troponin Interval history: Seen at 0940. Today she reports feeling well. Denies chest pains, sob, palpitations, dizziness. Abdominal discomfort has resolved. She now feels gassy . Tele shows SR, rates 60s- 80s. Having nuclear stress test completed today: 1 day protocol. Certified shipping and receiving used. Review of Systems Review of Systems as above Yes all other systems are reviewed and are negative Physical Exam Vital Signs: Last Vital Signs Temp 98.9 F 02/28/22 07:15 Pulse 75 02/28/22 07:15 Resp 16 02/28/22 07:15 BP 134/62 02/28/22 07:15 Pulse Ox 98 02/28/22 07:15 O2 Del Method 02/28/22 07:15 BMI result Body Mass Index 20.9 Const General: cooperative, healthy appearing, comfortable and no acute distress Neck Neck: Yes normal visual inspection Resp Effort & Inspection: normal respiratory effort Auscultation: clear to auscultation bilaterally, no crackles, no rales, no rhonchi and no wheezes Cardio Jugular venous distension: no JVD Rate: regular rate Rhythm: regular rhythm Heart sounds: S1 normal heart sound present, S2 normal heart sound present, no gallops, no murmurs and no rubs GI Inspection: Yes normal to inspection Extrem General: Yes normal to inspection and No no pedal edema Psych Appearance: grossly normal Mental Status: mental status grossly normal Speech and movement: Normal speech and movement present Objective Labs and Meds Result diagrams: 02/25/22 06:05 02/23/22 15:20 Lab results: Laboratory Results - last 24 hr 02/27/22 02/27/22 02/27/22 11:24 16:09 19:53 POC Glucose 219 H 176 H 169 H 02/28/22 07:17 POC Glucose 175 H Progress Note: A&P Assessment and plan (1) NSTEMI (non-ST elevated myocardial infarction): Status: Acute Assessment and Plan: Admit with abdominal discomfort: gastritis. Noted to have rise in Troponins, up to 198, consistent with NSTEMI. No known cardiac hx. Has risk factors of DM, HTN, age. EKG showed ST, no acute ST/ T wave abn, rate 101. Echo shows normal EF, impaired relaxation, can't exclude regional WMA. No reports of chest discomfort. She is on aspirin, and has been started on atorvastatin, metoprolol. Having pharmacological nuclear stress test completed today, 1 day protocol. If normal, she can be discharged from a cardiology perspective and we will arrange for outpt cardiology follow up. If abnormal, further treatment plan to be determined. (2) Elevated troponin: Status: Acute (3) HTN (hypertension): Status: Acute Assessment and Plan: Hx of HTN. Had been on Lisinopril 5 mg daily at home. This admit, lisinopril held and she was started on Metoprolol. BP this am 134/62. Continue metoprolol. Lisinopril can be added as outpt if needed for BP control. Time Spent With Patient Time: Total time spent is greater than 50% in coordination of care (as documented) at patient's floor/unit and/or counseling patient: 20 Progress Note: Quality Stroke Does the patient have a stroke diagnosis?: No Procedures Date of Service Date of Service: 02/28/22
[2022-02-28 11:01] VITALS: BP 137/63; PULSE 78; RESP 18; TEMP 36.8; O2SAT 99
[2022-02-28 11:26] LABS: Glucose, Whole Blood 277 mg/dL (60-115)
--- NOTE | 2022-02-28 12:39 | PM.DS ---
DS: Providers Provider Date of Service: 02/28/22 Date of admission: 02/26/22 13:36 Date of discharge: 02/28/22 Primary care physician: Hussein Potts MD Consults: 02/24/22 14:00 Consult to Cardiology Routine Consulting Provider: Christopher Rodriguez Reason for consultation: elevated troponin Has provider been notified: No DS: Diagnosis Discharge Diagnosis (1) NSTEMI (non-ST elevated myocardial infarction): Status: Acute (2) Elevated troponin: Status: Acute (3) HTN (hypertension): Status: Acute DS: Summary Hospital Course Hospital Course: from admission H+P by hospitalist Abner Lomeli, 02/24/22: 72-year-old Greenlandic-speaking female with past medical history of chronic gastritis, diabetes mellitus, hypertension, fibromyalgia 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 presented to [facility] with symptoms of epigastric pain that is worse from baseline, decreased by mouth intake, associated with dizziness, headache and nausea, in the emergency room workup showed hematocrit of 35 with last hematocrit checked in [address] abdomen and pelvis showed moderate constipation COVID test is negative EKG showed no acute ischemic changes however patient noted to have a rising troponin initial troponin was 18.3 that bumped up to 47.4 hence hospitalist team was called for admission at the present time patient epigastric pain has improved after receiving IV Pepcid, Bentyl, and IV fluid patient denies shortness of breath no diaphoresis, no palpitation denies prior history of coronary artery disease feels epigastric pain has same intensity but severe than her prior episode of gastritis since patient has multiple coronary artery disease risk factor she is being admitted to [facility] for continued monitoring and treatment. This 72yo F with HTN, DM2, chronic gastritis presenting with epigastric pain, nausea, and lightheadedness was found to have elevated Tn-I that peaked at 198 consistent with NSTEMI. Risk factors of DM, HTN, and age. No prior ACS. No EKG changes of ischemia. She was admitted to the [facility] and heparinized for 72 hr. She was given aspirin and atorvastatin and metoprolol were added. Cardiology was consulted. Echocardiogram demonstrated no regional wall motion abnormalities. Myocardial perfusion study was negative. She was discharged with the above medications and instructed to follow up with Cardiology and Primary Care. Epigastric discomfort resolved and seemed more consistent with known history of gastritis. Time Spent with Patient Time attestation: Total time spent providing and/or coordinating discharge services: 35 Discharge coordination time: Greater than 30 minutes Quality: Safe Use of Opioids Does Pt have an Active Cancer Diagnosis on the Problem List?: No Quality: Stroke Does the patient have a stroke diagnosis?: No Physical Exam Vital Signs: Vital Signs: Last Vital Signs Temp 98.2 F 02/28/22 11:01 Pulse 78 02/28/22 11:01 Resp 18 02/28/22 11:01 BP 137/63 02/28/22 11:01 Pulse Ox 99 02/28/22 11:01 O2 Del Method 02/28/22 11:01 BMI result Body Mass Index 20.9 Gen: in no acute distress HEENT: sclera anicteric, moist mucus membranes Neck: supple Lungs: clear to auscultation bilaterally Heart: regular rate and rhythm, no murmurs Abd: soft, non-tender, non-distended Ext: no edema Skin: warm/well-perfused Neuro: alert and oriented x3, no focal findings Psych: appropriate affect DS: Data Data Completed and Pending Completed studies during hospitalization [Text1]: Laboratory Results WBC 6.7 X10*3/uL (4.8-10.8) 02/25/22 06:05 RBC 4.44 X10*6/uL (4.20-5.50) 02/25/22 06:05 Hgb 10.8 g/dl (12.0-16.0) L 02/25/22 06:05 Hct 33.9 % (37.0-47.0) L 02/25/22 06:05 MCV 76.4 fL (80.0-98.0) L 02/25/22 06:05 MCH 24.3 pg (27.0-33.0) L 02/25/22 06:05 MCHC 31.9 g/dl (31.0-35.0) 02/25/22 06:05 RDW 12.6 % (11.0-16.0) 02/25/22 06:05 Plt Count 414 X10*3/uL (160-400) H 02/25/22 06:05 MPV 9.3 fL (9.4-12.3) L 02/25/22 06:05 Immature Gran % (Auto) 0.1 % (0.0-0.4) 02/23/22 15:20 Neut % (Auto) 55.2 % (45-73) 02/23/22 15:20 Lymph % (Auto) 36.2 % (20-40) 02/23/22 15:20 [place] % (Auto) 7.2 % (2-11) 02/23/22 15:20 Eos % (Auto) 0.6 % (0-4) 02/23/22 15:20 Baso % (Auto) 0.7 % (0-2) 02/23/22 15:20 Lymph # (Auto) 2.6 X10*3/uL (1.2-4.9) 02/23/22 15:20 [place] # (Auto) 0.5 X10*3/uL (0.1-1.2) 02/23/22 15:20 Eos # (Auto) 0.0 X10*3/uL (0.0-0.4) 02/23/22 15:20 Baso # (Auto) 0.1 X10*3/uL (0.0-0.2) 02/23/22 15:20 Abs Immat Gran (auto) 0.01 X10*3/uL (0.00-0.03) 02/23/22 15:20 Absolute Neuts (auto) 3.9 x10*3/uL (2.0-8.3) 02/23/22 15:20 Absolute Nucleated RBC 0.000 X10*3/uL (0.0-0.012) 02/25/22 06:05 Nucleated RBC % (auto) 0.0 /100WBC (0.0-0.2) 02/25/22 06:05 PT 12.2 SEC (10.0-13.1) 02/25/22 06:05 INR 1.1 (0.9-1.1) 02/25/22 06:05 aPTT Heparin Protocol 56.9 SEC (53-77.9) 02/27/22 05:46 Sodium 138 mmol/L (135-145) 02/23/22 15:20 Potassium 4.6 mmol/L (3.3-5.1) 02/23/22 15:20 Chloride 98 mmol/L (96-108) 02/23/22 15:20 Carbon Dioxide 24 mmol/L (22-29) 02/23/22 15:20 Anion Gap 21 (12-20) H 02/23/22 15:20 BUN 23 mg/dL (9-16) H 02/23/22 15:20 Creatinine 0.84 mg/dL (0.5-1.4) 02/23/22 15:20 Estim Creat Clear Calc 42.5 02/23/22 15:20 Estimated GFR > 60 02/23/22 15:20 POC Glucose 277 mg/dL (60-115) H 02/28/22 11:04 Random Glucose 141 mg/dL (60-115) H 02/23/22 15:20 Calcium 9.3 mg/dL (8.4-10.2) 02/23/22 15:20 Iron 20 mcg/dL (30-160) L 02/25/22 06:05 TIBC 284 mcg/dL (228-428) 02/25/22 06:05 % Saturation 7 % (15-50) L 02/25/22 06:05 Unsat Iron Binding 264 ug/dL 02/25/22 06:05 Ferritin 50 ng/mL (10-250) 02/25/22 06:05 Total Bilirubin 0.3 mg/dL (0.0-1.0) 02/23/22 15:20 Direct Bilirubin 0.2 mg/dL (0.0-0.5) 02/23/22 15:20 AST 15 U/L (5-31) 02/23/22 15:20 ALT 6 U/L (0-31) 02/23/22 15:20 Alkaline Phosphatase 155 U/L (39-117) H 02/23/22 15:20 Troponin I High Sens 151.6 ng/L (<3.5-17.0) H* 02/24/22 19:03 Total Protein 7.3 g/dL (6.5-8.0) 02/23/22 15:20 Albumin 4.1 g/dL (3.5-5.0) 02/23/22 15:20 Triglycerides 128 mg/dL 02/25/22 06:05 Cholesterol 172 mg/dL 02/25/22 06:05 LDL Cholesterol, Calc 111 mg/dl 02/25/22 06:05 HDL Cholesterol 36 mg/dL 02/25/22 06:05 Lipase 21 U/L (8-78) 02/23/22 15:20 Urine Color Dark Yellow 02/24/22 02:51 Urine Appearance Clear 02/24/22 02:51 Urine pH 5.5 (5.0-9.0) 02/24/22 02:51 Ur Specific [place] 1.020 (1.005-1.025) 02/24/22 02:51 Urine Protein Trace mg/dL (Neg-Trace) 02/24/22 02:51 Urine Glucose (UA) Negative mg/dL (Negative) 02/24/22 02:51 Urine Ketones 40 mg/dL (Negative) 02/24/22 02:51 Urine Blood Negative (Negative) 02/24/22 02:51 Urine Nitrite Negative (Negative) 02/24/22 02:51 Ur Leukocyte Esterase Negative (Negative) 02/24/22 02:51 COVID-19 (SARAY) Negative (Negative) 02/23/22 15:23 COVID-19 Clin Com See Note 02/23/22 15:23 Impressions Abdomen/Pelvis CT 02/24/22 06:45 IMPRESSION: No acute intra-abdominal process seen. There is moderate constipation. Fleischner guidelines were followed. TTE 02/24/22 1.? Normal LV systolic function with impaired relaxation ? ? ? filling pattern? 2.? Normal cardiac valvular Doppler? 3.? No gross pericardial effusion? Discharge Plan Discharge Anticipated Discharge Date/Time: 02/28/22 12:36 Patient Disposition: Home, Self-Care Discharge Diagnosis: NSTEMI Referrals: Name,MD Hussein [Primary Care Provider] - 1 Week Christopher Rodriguez MD [Physician] - 1 Week Discharge Medications: New atorvastatin 40 mg Tablet 40 mg PO DAILY Qty: 30 0RF metoprolol tartrate 25 mg Tablet 25 mg PO BID Qty: 60 0RF Protocol: Hold for SBP/HR < HOLD for SBP < : 90 HOLD for HR < : 60 Continued latanoprost 0.005 % drops 1 drp ophthalmic (eye) BEDTIME omeprazole 20 mg capsule,delayed release(DR/EC) 1 cap PO DAILY@0630 cholecalciferol (vitamin D3) 50 mcg (2,000 unit) tablet 1 tab PO DAILY Trulicity 1.5 mg/0.5 mL pen injector 1.5 mg subcut TH@0900 Rhopressa 0.02 % drops 1 drp ophthalmic (eye) DAILY@1400 fluoxetine 20 mg capsule 20 mg PO BID acetaminophen 500 mg tablet 1,000 mg PO Q8H PRN (Reason: pain) gabapentin 100 mg capsule 100 mg PO BEDTIME (DME) lancets 33 gauge misc See Rx Instructions Not Applicable .MEDSUPPLY Qty: 100 Rx Instructions: As directed (DME) pen needle, diabetic 32 gauge x 5/32 needle See Rx Instructions .ROUTE DAILY Qty: 50 Rx Instructions: As directed lisinopril 5 mg tablet 5 mg PO DAILY aspirin 81 mg tablet,delayed release (DR/EC) 81 mg PO DAILY Discharge Orders: Discharge Order (Routine); Ordered 02/28/22 Ordered By: Vazquez Blackmon Diet: Low salt diet Activity on Discharge: As tolerated Stand Alone Forms: Patient Portal Discharge page Care Plan Goals: cardiac health Health Concerns: NSTEMI Plan of Treatment: continue aspirin take metoprolol tartrate 25 mg twice daily take atorvastatin 40 mg daily follow up with [facility] Cardiology in 1-2 weeks Please follow up with your primary care doctor within 1 week. Return to the hospital if you experience recurrent or worsening symptoms. Assessment: See Discharge Summary.
--- NOTE | 2022-02-28 12:59 | MHC.CM.PN ---
PT DCD HOMEM NO SKILLED SERVCIES ORDERD BY
== END 2022-02-28 15:53 | disposition home or self-care (01) | DRG 282 ==
LOC: HO.ED 02-24 07:46 → HO.EDOVER 02-24 11:35 → HO.IMC 02-25 01:22
PROVIDERS: Internal Medicine; Admitting Provider Hospitalist; Emergency Provider Internal Medicine; PCP Internal Medicine Geriatric Medicine; Visit Provider Family Medicine
DX: I21.4 Non-ST elevation (NSTEMI) myocardial infarction (principal); K29.50 Unspecified chronic gastritis without bleeding; I10 Essential (primary) hypertension; E11.40 Type 2 diabetes mellitus with diabetic neuropathy, unspecified; M79.7 Fibromyalgia; Z20.822 Contact with and (suspected) exposure to COVID-19; Z91.013 Allergy to seafood; Z79.82 Long term (current) use of aspirin; Z79.84 Long term (current) use of oral hypoglycemic drugs; Z79.899 Other long term (current) drug therapy
CPT/HCPCS: 36415; 74176; 78452; 80048; 80061; 80076; 81003; 82728; 82947; 83540; 83690; 84484; 85025; 85027; 85610; 85730; 87635; 93005; 93017; 93306; 99285; A9500; A9537; J0280; J1650; J2405; J2785; Q9957

== ENCOUNTER → 2022-03-22 13:18 | Outpatient (BNVA) | payer OTHER, SELFPAY | PROVIDERS: PCP Internal Medicine Geriatric Medicine; Visit Provider Surgery | DX: Z12.11 Encounter for screening for malignant neoplasm of colon (principal) | CPT/HCPCS: 99202 ==

== ENCOUNTER → 2022-03-23 13:31 | Outpatient (BNVA) | payer OTHER, SELFPAY | PROVIDERS: PCP Internal Medicine Geriatric Medicine; Referring Provider Internal Medicine Geriatric Medicine; Visit Provider Nurse Practitioner Family | DX: I21.4 Non-ST elevation (NSTEMI) myocardial infarction (principal); R77.8 Other specified abnormalities of plasma proteins | CPT/HCPCS: 99212 ==

== ENCOUNTER 2022-09-14 19:03 | Emergency (ER) | payer OTHER, SELFPAY ==
--- NOTE | ~2022-09-14 | CT_ITS ---
EXAMINATION: CT CERVICAL SPINE WITHOUT CONTRAST CLINICAL INFORMATION: Lower spinal pain. Neck and shoulder pain. COMPARISON: None available. TECHNIQUE: Multidetector helical imaging of the cervical spine was obtained without intravenous contrast. Multiple axial reformats and coronal/sagittal reconstructions were created the technologist workstation for review. This CT examination was performed using dose optimization techniques as appropriate, variously including the following: *Automated exposure control. *Adjustment of mA and/or kV according to patient size (this includes techniques or standardized protocols for targeted exams where dose is matched to indication/reason for exam; i.e. extremities or head). *Use of iterative reconstruction technique. DLP: 266 mGy-cm FINDINGS: The atlantooccipital and atlantoaxial articulations remain well aligned. Straightening of the normal cervical lordosis. Otherwise, there is anatomic alignment of the vertebral bodies and posterior elements. No evidence of acute fracture or subluxation. The vertebral body heights are maintained. Mild degenerative disc disease at all cervical levels. There is no prevertebral soft tissue swelling. The thyroid gland and remaining cervical soft tissues are within normal limits. The lung apices demonstrate no abnormalities. SPINAL LEVELS: C2-C3: Mild disc-osteophyte complex. There is mild left and no right uncovertebral joint arthropathy. There is mild left and no right facet joint arthropathy. There is mild left and no right neural foraminal stenosis. There is no demonstrated spinal canal stenosis. C3-C4: Mild disc-osteophyte complex. There is no uncovertebral joint arthropathy. There is moderate to severe bilateral facet joint arthropathy. There is no neural foraminal stenosis. There is no demonstrated spinal canal stenosis. C4-C5: Mild disc-osteophyte complex. There is no uncovertebral joint arthropathy. There is severe right and moderate left facet joint arthropathy. There is mild right and no left neural foraminal stenosis. Moderate calcific change of the right ligamentum flavum. There appears to be mild spinal canal stenosis. C5-C6: Moderate disc-osteophyte complex. There is moderate bilateral uncovertebral joint arthropathy. There is moderate bilateral facet joint arthropathy. Prominent calcific change of the ligamentum flavum bilaterally. There is moderate bilateral neural foraminal stenosis. There appears to be moderate to severe spinal canal stenosis. C6-C7: Prominent disc-osteophyte complex. There is mild bilateral uncovertebral joint arthropathy. There is severe left and moderate right facet joint arthropathy. Prominent calcific change of the ligamentum flavum bilaterally. There is severe right and moderate left neural foraminal stenosis. There appears to be severe spinal canal stenosis. C7-T1: Normal annular contour. There is mild left and no right uncovertebral joint arthropathy. There is mild bilateral facet joint arthropathy. There is no neural foraminal stenosis. There is no demonstrated spinal canal stenosis. CT/CT cervical spine wo IV con IMPRESSION: 1. No evidence of acute fracture or traumatic subluxation of the cervical spine. 2. Moderate multilevel degenerative spondyloarthropathy of the cervical spine as described in detail above. Most notably on this limited exam without intrathecal contrast, there appears to be moderate to severe spinal canal stenoses at C5-C6 and C6-C7. Mild spinal canal stenosis at C4-C5. Moderate to severe neural foraminal stenoses at C5-C6 and C6-C7.
[2022-09-14 19:14] VITALS: BP 150/80; PULSE 94; O2SAT 97
[2022-09-14 20:21] VITALS: BP 155/73; PULSE 88; RESP 18; TEMP 37.1; O2SAT 100; BMI 19.5
--- NOTE | 2022-09-14 20:23 | ED.GENADULT ---
HPI - General Adult General Chief complaint: Back Pain/Injury <NIXON Orona - Last Filed: 09/14/22 20:24> Stated complaint: neck and back pain <NIXON Orona - Last Filed: 09/14/22 20:24> Time Seen by Provider: 09/14/22 23:45 <NIXON Orona - Last Filed: 09/14/22 20:24> Source: patient <Raymundo Mora MD - Last Filed: 09/15/22 01:19> Mode of arrival: ambulatory <Raymundo Mora MD - Last Filed: 09/15/22 01:19> Limitations: no limitations <Raymundo Mora MD - Last Filed: 09/15/22 01:19> History of Present Illness HPI narrative: Patient with history of arthritis, fibromyalgia complaining of pain in the neck for last few days getting worse radiated to the right shoulder no weakness of the hand no trauma no fever or chills <Raymundo Mora MD - Last Filed: 09/15/22 01:19> Related Data Home medications: Home Medications Medication Instructions Recorded Confirmed acetaminophen 500 mg tablet 1,000 mg PO Q8H PRN pain 08/31/20 04/24/22 aspirin 81 mg tablet,delayed 81 mg PO DAILY 08/31/20 04/24/22 release gabapentin 100 mg capsule 100 mg PO BEDTIME 08/31/20 04/24/22 lancets 33 gauge #100 ea 08/31/20 03/23/22 lisinopril 5 mg tablet 5 mg PO DAILY 08/31/20 04/24/22 pen needle, diabetic 32 gauge x #50 ea 08/31/20 03/23/22 cholecalciferol (vitamin D3) 50 1 tab PO DAILY 02/24/22 04/24/22 mcg (2,000 unit) tablet dulaglutide 1.5 mg/0.5 mL 1.5 mg subcut TH@0900 02/24/22 04/24/22 subcutaneous pen injector (Trulicity) latanoprost 0.005 % eye drops 1 drp ophthalmic (eye) BEDTIME 02/24/22 04/24/22 netarsudil 0.02 % eye drops 1 drp ophthalmic (eye) DAILY@1400 02/24/22 04/24/22 (Rhopressa) fluoxetine 20 mg capsule 20 mg PO QAM 03/23/22 04/24/22 omeprazole 20 mg capsule,delayed 20 mg PO DAILY@0630 03/23/22 04/24/22 release Previous Rx's Medication Instructions Recorded sodium,potassium,mag sulfates 17.5 See Rx Instructions PO .COMPLEX 03/22/22 gram-3.13 gram-1.6 gram oral soln #354 mL (Suprep Bowel Prep Kit) tramadol 50 mg tablet 50 mg PO Q6H PRN pain #20 tabs 09/15/22 <NIXON Orona - Last Filed: 09/14/22 20:24> Allergies/adverse reactions: Allergies Allergy/AdvReac Type Severity Reaction Status Date / Time fish derived [fish] Allergy Intermediate Nausea Verified 09/14/22 20:26 iodine [IODINE] Allergy Intermediate NAUSEA Verified 09/14/22 20:26 shellfish derived Allergy Intermediate Nausea Verified 09/14/22 20:26 pravastatin AdvReac Intermediate body ache Verified 09/14/22 20:26 <NIXON Orona - Last Filed: 09/14/22 20:24> Review of Systems Review of Systems: Yes all other systems are reviewed and are negative <Raymundo Moar MD - Last Filed: 09/15/22 01:19> [facility] Past Medical History Medical History: Medical History ACS (acute coronary syndrome) Acute gastritis Arthritis Colon cancer screening Diabetes Fibromyalgia HTN (hypertension) NSTEMI (non-ST elevated myocardial infarction) <NIXON Orona - Last Filed: 09/14/22 20:24> Surgical History: Surgical History H/O colonoscopy H/O hysterectomy with oophorectomy Hx of hand surgery <NIXON Orona - Last Filed: 09/14/22 20:24> Social History Social History: Social History Alcohol intake: never Patient Tobacco Use Status: Never used Tobacco Advance Directives: Yes Advance Directives Information Provided: Yes Advance Directives on File: Yes Advance Directives Date on File: 03/01/22 service: No Current occupational status: unemployed Current occupation: right handed Gender identity: Female <NIXON Orona - Last Filed: 09/14/22 20:24> Physical Exam ED Vital Signs: Vital Signs - 24 hr 09/14/22 20:21 Temperature 98.8 F Pulse Rate 88 Respiratory Rate 18 Blood Pressure 155/73 H Pulse Oximetry 100 Oxygen Delivery Method Room Air BMI result Body Mass Index 19.5 <NIXON Orona - Last Filed: 09/14/22 20:24> Vital Signs - 24 hr 09/14/22 20:21 Temperature 98.8 F Pulse Rate 88 Respiratory Rate 18 Blood Pressure 155/73 H Pulse Oximetry 100 Oxygen Delivery Method Room Air BMI result Body Mass Index 19.5 <Raymundo Mora MD - Last Filed: 09/15/22 01:19> Appearance: Alert. Oriented X3. No acute distress. Eyes: PERRLA, No Nystagmus ENT: Pharynx normal. Oral Mucosa moist Neck: Normal inspection. Neck supple. Diffuse tenderness in midline no deformity no paresthesia CVS: Normal heart rate and rhythm. Pulses normal. Respiratory: No respiratory distress. Equal air entry bilateral, no wheezing/rales/rhonchi Abdomen: Soft and nontender. Bowel sounds are present, no mass palpable, no CVA tenderness Skin: Skin warm and dry. Normal skin color. Normal skin turgor. Extremities: No lower extremity edema. No calf tenderness hand mortgage manager is 5/5 neurovascular intact Neuro: Oriented X 3. No motor deficit. No sensory deficit.No cerebellar signs , cranial nerves II-XII intact <Raymundo Mora MD - Last Filed: 09/15/22 01:19> Course Course Course Narrative: This is an RME: Additional HPI, ROS, PE not included below will be deferred to primary provider. 72 yo F presents w/ a traumatic neck pain and issues swallowing. Pain severe constant worse w/ movement Pe pain w/ rom of neck. No meningeal signs Plan- cervical spine CT <NIXON Orona - Last Filed: 09/14/22 20:24> Medications Administered Discontinued Medications Generic Name Dose Route Start Last Admin Trade Name Freq PRN Reason Stop Dose Admin Tramadol HCl 50 mg 09/15/22 00:11 09/15/22 00:25 Tramadol Hcl 50 Mg Tablet PO 09/15/22 00:12 50 mg ONCE ONE Administration <NIXON Orona - Last Filed: 09/14/22 20:24> Medications Administered Discontinued Medications Generic Name Dose Route Start Last Admin Trade Name Freq PRN Reason Stop Dose Admin Tramadol HCl 50 mg 09/15/22 00:11 09/15/22 00:25 Tramadol Hcl 50 Mg Tablet PO 09/15/22 00:12 50 mg ONCE ONE Administration <Raymundo Mora MD - Last Filed: 09/15/22 01:19> Medical Decision Making Medical Decision Making [facility] Narrative: Patient has severe cervical arthritis CT scan showed multiple levels of degeneration no signs of acute spinal cord compression discharge patient home advised to follow with PCP <Raymundo Mora MD - Last Filed: 09/15/22 01:19> Lab Data [facility] Lab Attestation statement: I reviewed the patient's lab results. <Raymundo Mora MD - Last Filed: 09/15/22 01:19> Labs: Lab Results 09/15/22 Range/Units 00:31 POC Glucose 52 L* (60-115) mg/dL <NIXON Orona - Last Filed: 09/14/22 20:24> Lab Results 09/15/22 Range/Units 00:31 POC Glucose 52 L* (60-115) mg/dL <Raymundo Mora MD - Last Filed: 09/15/22 01:19> Radiology Impression Discussion of test interpretation with radiology: I have reviewed the radiologist's reading. <Raymundo Mora MD - Last Filed: 09/15/22 01:19> Radiologist Impression: CT/CT cervical spine wo IV con IMPRESSION: 1.? No evidence of acute fracture or traumatic subluxation of the cervical spine. 2.? Moderate multilevel degenerative spondyloarthropathy of the cervical spine as described in detail above. Most notably on this limited exam without intrathecal contrast, there appears to be moderate to severe spinal canal stenoses at C5-C6 and C6-C7. Mild spinal canal stenosis at C4-C5. Moderate to severe neural foraminal stenoses at C5-C6 and C6-C7. <Raymundo Mora MD - Last Filed: 09/15/22 01:19> Discharge Plan Discharge Clinical Impression: Cervical spine arthritis <NIXON Orona - Last Filed: 09/14/22 20:24> Patient Disposition: Home, Self-Care <NIXON Orona - Last Filed: 09/14/22 20:24> Instructions: Neck Pain (ED) <NIXON Orona - Last Filed: 09/14/22 20:24> Additional Instructions: you have arthritis of the cervical spine Pain medication as prescribed Follow up with PCP for further management usted tiene artritis de la [place] cervical Medicamentos para el dolor seg?n lo prescrito Seguimiento con el PCP para un manejo posterior <NIXON Orona - Last Filed: 09/14/22 20:24> Prescriptions: New tramadol 50 mg tablet 50 mg PO Q6H PRN (Reason: pain) Qty: 20 0RF No Action latanoprost 0.005 % drops 1 drp ophthalmic (eye) BEDTIME cholecalciferol (vitamin D3) 50 mcg (2,000 unit) tablet 1 tab PO DAILY Trulicity 1.5 mg/0.5 mL pen injector 1.5 mg subcut TH@0900 Rhopressa 0.02 % drops 1 drp ophthalmic (eye) DAILY@1400 omeprazole 20 mg capsule,delayed release(DR/EC) 20 mg PO DAILY@0630 acetaminophen 500 mg tablet 1,000 mg PO Q8H PRN (Reason: pain) gabapentin 100 mg capsule 100 mg PO BEDTIME (DME) lancets 33 gauge misc See Rx Instructions Not Applicable .MEDSUPPLY Qty: 100 Rx Instructions: As directed (DME) pen needle, diabetic 32 gauge x 5/32 needle See Rx Instructions .ROUTE DAILY Qty: 50 Rx Instructions: As directed lisinopril 5 mg tablet 5 mg PO DAILY aspirin 81 mg tablet,delayed release (DR/EC) 81 mg PO DAILY fluoxetine 20 mg capsule 20 mg PO QAM sodium,potassium,mag sulfates [Suprep Bowel Prep Kit] 17.5-3.13-1.6 gram recon soln See Rx Instructions PO .COMPLEX Qty: 354 0RF Rx Instructions: DILUTE; drink full amount early evening before AND next morning at least 2 hr before procedure; follow w 32 oz. water PO <NIXON Orona - Last Filed: 09/14/22 20:24> Print Language: Pakistani <NIXON Orona - Last Filed: 09/14/22 20:24>
[2022-09-15] MEDS: traMADoL HCL 50 MG TABLET PO (00:25)
--- NOTE | 2022-09-15 00:33 | PC.NURSE ---
Pt assisted with bedpan. Medicated per JUL. Pt asked me to check her suger, resulted in 52. Pt given orange juice and a sandwich, will recheck sugar after eating.
[2022-09-15 00:35] LABS: Glucose, Whole Blood 52 mg/dL (60-115)
== END 2022-09-15 02:13 | disposition home or self-care (01) ==
PROVIDERS: Emergency Provider Internal Medicine; PCP Internal Medicine Geriatric Medicine
DX: M54.2 Cervicalgia (principal); E11.9 Type 2 diabetes mellitus without complications; Z79.84 Long term (current) use of oral hypoglycemic drugs; Z79.899 Other long term (current) drug therapy
CPT/HCPCS: 72125; 82947; 99283; 99284

== ENCOUNTER → 2022-09-26 13:20 | Outpatient (BNVA) | payer OTHER, SELFPAY | PROVIDERS: PCP Internal Medicine Geriatric Medicine; Referring Provider Internal Medicine Geriatric Medicine; Visit Provider Nurse Practitioner Family | DX: I21.4 Non-ST elevation (NSTEMI) myocardial infarction (principal); I10 Essential (primary) hypertension; E78.5 Hyperlipidemia, unspecified | CPT/HCPCS: 99212 ==

== ENCOUNTER 2023-02-14 10:05 | Outpatient (REF) | payer OTHER, SELFPAY ==
[2023-02-14 11:26] LABS: MANUAL DIFF FLAG NO
[2023-02-14 11:36] LABS: Basophils Percent Auto 0.7 % (0-2); Eosinophils Absolute Auto 0.1 X10*3/uL (0.0-0.4); Eosinophils Percent Auto 1.8 % (0-4); Hematocrit 38.5 % (37.0-47.0); Hemoglobin 12.6 g/dl (12.0-16.0); Imm Gran Abs Auto 0.01 X10*3/uL (0.00-0.03); Imm Gran Pct Auto 0.2 % (0.0-0.4); Lymphocytes Absolute Auto 2.4 X10*3/uL (1.2-4.9); Lymphocytes Percent Auto 53.3 % (20-40); Mean Corpuscular HGB Conc 32.7 g/dl (31.0-35.0); Mean Corpuscular Hemoglobin 26.4 pg (27.0-33.0); Mean Corpuscular Volume 80.7 fL (80.0-98.0); Mean Platelet Volume 9.8 fL (9.4-12.3); Monocytes Absolute Auto 0.3 X10*3/uL (0.1-1.2); Monocytes Percent Auto 6.7 % (2-11); Neutrophils Absolute Auto 1.7 x10*3/uL (2.0-8.3); Neutrophils Percent Auto 37.3 % (45-73); Platelet Count 262 X10*3/uL (160-400); Red Blood Count 4.77 X10*6/uL (4.20-5.50); White Blood Count 4.5 X10*3/uL (4.8-10.8)
[2023-02-14 12:07] LABS: Ferritin 19 ng/mL (10-250)
== END 2023-02-14 10:06 | disposition home or self-care (01) ==
LOC: HO.HHCL 10:05
PROVIDERS: Visit Provider Internal Medicine Geriatric Medicine
DX: D50.9 Iron deficiency anemia, unspecified (principal)
CPT/HCPCS: 36415; 82728; 85025

== ENCOUNTER 2023-03-07 18:20 | Outpatient (REF) | payer OTHER, SELFPAY ==
[2023-03-08 13:48] LABS: BV Int Neg Control Negative (Negative); BV Int Pos Control Positive (Positive)
== END 2023-03-07 18:21 | disposition home or self-care (01) ==
LOC: HO.HHCLNP 18:20
PROVIDERS: Visit Provider Emergency Medicine
DX: N89.8 Other specified noninflammatory disorders of vagina (principal)
CPT/HCPCS: 87480; 87510; 87660

== ENCOUNTER 2023-03-15 12:54 | Outpatient (AMB) | payer OTHER, SELFPAY ==
--- NOTE | 2023-03-15 13:07 | A.OFFVIS_ITS ---
Intake Vital Signs 03/15/23 13:11 Height 4 ft 11 in Weight 100 lb 4 oz BMI 20.2 BP 188/77 H Blood Pressure Location Rt brachial Position Sitting Pulse 75 Intake Visit Reasons: re-discuss colonoscopy screening Intake Note: This patient presents for an assessment to re-discuss colonoscopy. Patient c/o; reports no complaints at this time. Rapid Outsole Stitcher Required: Yes Rapid Outsole Stitcher Language: Review Manager Name: Sarah Information Interpreted: non-clinical & clinical Accompanied by: Self / Same As Patient Allergies fish derived [fish] Allergy (Intermediate, Verified 03/15/23 13:12) Nausea iodine [IODINE] Allergy (Intermediate, Verified 03/15/23 13:12) NAUSEA shellfish derived Allergy (Intermediate, Verified 03/15/23 13:12) Nausea pravastatin Adverse Reaction (Intermediate, Verified 03/15/23 13:12) body ache Medication List - Last Reconciled 03/15/23 by Devonte Alfaro MD acetaminophen 1,000 mg PO Q8H PRN aspirin 81 mg PO DAILY cholecalciferol (vitamin D3) 1 tab PO DAILY empagliflozin (Jardiance) 10 mg PO QAM fluoxetine 20 mg PO QAM gabapentin 100 mg PO BEDTIME insulin glargine (Lantus Solostar U-100 Insulin) 10 units subcut DAILY lancets As directed latanoprost 0.005% 1 drp ophthalmic (eye) BEDTIME lisinopril 5 mg PO DAILY metformin ER 0 mg PO netarsudil 0.02% (Rhopressa) 1 drp ophthalmic (eye) DAILY@1400 omeprazole 20 mg PO DAILY@0630 pen needle, diabetic As directed sodium,potassium,mag sulfates 17.5-3.13-1.6 gram (Suprep Bowel Prep Kit) DILUTE; drink full amount early evening before AND next morning at least 2 hr before procedure; follow w 32 oz. water PO tramadol 50 mg PO Q6H PRN HPI re-discuss colonoscopy screening HPI Details 73-year-old female referred for screenin g colonoscopy. I had actually seen her in the office last March, for screening colonoscopy. She was scheduled to have this done at that time but for some reason, this procedure was apparently canceled. She has a history of chronic constipation. Review of her records show that her last colonoscopy was in 2011 He had an TN last February, but had been cleared already by Cardiology. She had a normal stress test as well. [facility] Medical History NSTEMI (non-ST elevated myocardial infarction) Colon cancer screening ACS (acute coronary syndrome) Acute gastritis Fibromyalgia Arthritis Diabetes HTN (hypertension) Surgical History Hx of hand surgery H/O colonoscopy H/O hysterectomy with oophorectomy Social History Alcohol intake: never Patient Tobacco Use Status: Never used Tobacco Advance Directives Date on File: 03/01/22 service: No Current occupational status: unemployed Current occupation: right handed Gender identity: Female Review of Systems Const Denies chills and Denies fever(s) Card Denies chest pain, Denies dyspnea and Denies dyspnea on exertion Resp Denies cough, Denies dyspnea and Denies dyspnea on exertion GI Denies hematochezia, Denies change in bowel habits and Reports constipation Denies hematuria Musc Denies back pain and Denies limited range of motion Neuro Denies focal weakness and Denies convulsions Psych Denies depression and Denies mood swings Physical Exam Vital Signs: Last Vital Signs Pulse 75 03/15/23 13:11 BP 188/77 H 03/15/23 13:11 BMI result Body Mass Index 20.2 Const General: comfortable and no acute distress Orientation/consciousness: patient oriented x3 Neck Neck: Yes no lymphadenopathy Resp Auscultation: clear to auscultation bilaterally Cardio Rhythm: regular rhythm GI Palpation (GI): Soft to palpation, nontender and no guarding Neuro General: patient oriented x3 Assessment & Plan Assessment & Plan (1) Colon cancer screening: Code(s): Z12.11 - Encounter for screening for malignant neoplasm of colon Plan: I reviewed with her the technique of colonoscopy for screening. I explained the risks including but not limited to bleeding, perforation, as well as the benefits and alternatives. She understands and agrees to proceed. She had a history of non STEMI. She has been cleared by Cardiology for the procedure. Coding Level of Care Code Est Pt Level 3 (88551) Diagnoses Colon cancer screening Z12.11
[2023-03-15 13:11] VITALS: BP 188/77; PULSE 75; BMI 20.2
== END 2023-03-15 13:42 | disposition home or self-care (01) ==
PROVIDERS: PCP Internal Medicine Geriatric Medicine; Visit Provider Surgery
DX: Z12.11 Encounter for screening for malignant neoplasm of colon (principal)
CPT/HCPCS: 99213

== ENCOUNTER → 2023-03-15 12:54 | Outpatient (BNVA) | payer OTHER, SELFPAY | PROVIDERS: PCP Internal Medicine Geriatric Medicine; Visit Provider Surgery | DX: Z12.11 Encounter for screening for malignant neoplasm of colon (principal) | CPT/HCPCS: 99212 ==

== ENCOUNTER 2023-04-20 05:59 | Day surgery (SDC) | payer OTHER, SELFPAY ==
[2023-04-18 09:50] VITALS: BMI 20.2
[2023-04-20 06:43] VITALS: BP 170/68; PULSE 66; RESP 16; TEMP 36.5; O2SAT 98; BMI 19.6
[2023-04-20 06:57] LABS: Glucose, Whole Blood 139 mg/dL (60-115)
--- NOTE | 2023-04-20 07:22 | P.CONAN_ITS ---
[facility] Active Problems Active Problems: All Active Problems (Updated 04/18/23 @ 09:49 by Viridiana Mueller RN) Hyperlipidemia LDL goal <70 (Acute) Elevated troponin (Acute) NSTEMI (non-ST elevated myocardial infarction) (Acute) Cubital tunnel syndrome on left (Acute) Cubital tunnel syndrome on right (Acute) Carpal tunnel syndrome of left wrist (Acute) Carpal tunnel syndrome of right wrist (Acute) HTN (hypertension) (Acute) Colon cancer screening (Acute) Past Medical History Medical History NSTEMI (non-ST elevated myocardial infarction) Colon cancer screening ACS (acute coronary syndrome) Acute gastritis Fibromyalgia Arthritis Diabetes HTN (hypertension) Surgical History Surgical History History of cataract surgery Hx of hand surgery H/O colonoscopy H/O hysterectomy with oophorectomy History of Problems with Anesthesia: No Social History Social History Alcohol intake: never Patient Tobacco Use Status: Never used Tobacco Use of substances other than those prescribed or required for medical reasons: No Are you DNR?: No Advance Directives: No Advance Directives Information Provided: Yes Advance Directives Date on File: 03/01/22 service: No Current occupational status: unemployed Current occupation: right handed Gender identity: Female Meds Allergies Allergy/AdvReac Type Severity Reaction Status Date / Time fish derived [fish] Allergy Intermediate Nausea Verified 04/20/23 06:14 iodine [IODINE] Allergy Intermediate NAUSEA Verified 04/20/23 06:14 shellfish derived Allergy Intermediate Nausea Verified 04/20/23 06:14 pravastatin AdvReac Intermediate body ache Verified 04/20/23 06:14 Home Medications Medication Instructions Recorded Confirmed Last Taken Type acetaminophen 500 mg tablet 1,000 mg PO Q8H PRN pain 08/31/20 04/20/23 02/21/22 History aspirin 81 mg tablet,delayed 81 mg PO DAILY 08/31/20 04/20/23 04/18/23 History release lancets 33 gauge #100 ea 08/31/20 03/15/23 Unknown History lisinopril 5 mg tablet 5 mg PO DAILY 08/31/20 04/20/23 02/21/22 History pen needle, diabetic 32 gauge x #50 ea 08/31/20 03/15/23 Unknown History cholecalciferol (vitamin D3) 50 1 tab PO DAILY 02/24/22 04/20/23 02/21/22 History mcg (2,000 unit) tablet fluoxetine 20 mg capsule 20 mg PO QAM 03/23/22 04/20/23 Unknown History omeprazole 20 mg capsule,delayed 20 mg PO DAILY@0630 03/23/22 04/20/23 Unknown History release insulin glargine 100 unit/mL (3 20 unit subcut DAILY 09/26/22 04/20/23 04/18/23 History mL) subcutaneous pen (Lantus Solostar U-100 Insulin) metformin 500 mg tablet,extended 1,000 mg PO BID 09/26/22 04/20/23 04/18/23 Hi story release 24 hr Exam Height,Weight and Vital Signs: Height 4 ft 11 in Weight 44.044 kg Last Vital Signs Temp 97.7 F 04/20/23 06:43 Pulse 66 04/20/23 06:43 Resp 16 04/20/23 06:43 BP 170/68 H 04/20/23 06:43 Pulse Ox 98 04/20/23 06:43 O2 Del Method Room Air 04/20/23 06:43 Pertinent Lab Results Pertinent Lab Results: Laboratory Tests 04/20/23 06:51 POC Glucose 139 H Airway Mallampati Class: II TM Dist: >3cm Neck ROM: Full Denture: Upper Loose/Missing/Broken Teeth: Yes, Upper and Lower Heart: RRR Lungs: CTA Assessment and Plan Assessment Anesthesia Assessment: Anesthesia Plan Discussed and Chart Reviewed Final Anesthetic Review History of Problems with Anesthesia: No NPO: Yes ASA Class: III Final Preanesthetic Review: Meds/Allgs Chart Reviewed, Consent Obtained/Reviewed and Anes Risks/Benef Reviewed Patient Risk: Intermediate Procedure Risk: Low Anesthetic Plan Anesthetic Plan: MAC: Disposition: Standard PACU
[2023-04-20 08:31] VITALS: BP 141/65; PULSE 60; RESP 16; TEMP 36.2; O2SAT 100
--- NOTE | 2023-04-20 08:31 | W.PM.OPN ---
Operative Note Operative Note Date of Service: 04/20/23 Narrative: Preop diagnosis: Colon cancer screening Postop diagnosis: External hemorrhoids otherwise normal colonoscopy findings; unable to intubate the cecum due to severe looping Procedure: Colonoscopy, all the way to the right colon but unable to intubate the cecum Surgeon: Devonte Alfaro MD The patient is a 73-year-old female for screening colonoscopy. She understood the technique of the procedure as well as the risks, benefits, and alternatives. The patient was brought to the operating room and placed in left lateral decubitus position under monitored anesthesia care. A surgical time-out was done. A full digital rectal exam was done and this did not reveal any significant anal lesions. The tip of the Olympus colonoscope was gently introduced through the anal orifice advanced with insufflation all the way to the cecum. We had difficulty advancing the scope all the way to the right colon in view of severe looping. We had the there is apply splinting on the abdominal wall pole times to allow was to advance the scope. We were able to reach the right colon and visualized the cecum but I was unable to intubate this because of severe looping. We attempted multiple times but in view of perforation, I decided to eventually complete the procedure. We started withdrawing the scope with careful examination of the entire colonic because of being them scope withdrawal starting from the right colon all the way to the rectum. There were no lesions seen. There was no polyp on any abnormal mucosa. The rectal shelf at the anal canal will examined carefully and there were no lesions seen. The scope was then withdrawn completely with desufflation. There was note of external hemorrhoids in the anal verge . The patient tolerated the procedure well. There were no immediate complications. She was transferred to the recovery room with stable vital signs. In view of the inability to intubate the cecum, I will recommend a repeat colonoscopy within 5 years if she is still of reasonable health by then.
--- NOTE | 2023-04-20 08:36 | MHC.SHP ---
Pre-Procedural Eval Section A Date of Service: 04/20/23 Section B Chief Complaint: Encounter for screening for malignant neoplasm of Details of Present Illness: for screening colonoscopy, no significant GI complaints Relevant Social History: None Present Medications: see Short Stay Collaborative assessment Medical History: Significant History ( hyperlipidemia history of [place], hypertension) Allergies: Allergies Allergy/AdvReac Type Severity Reaction Status Date / Time fish derived [fish] Allergy Intermediate Nausea Verified 04/20/23 06:14 iodine [IODINE] Allergy Intermediate NAUSEA Verified 04/20/23 06:14 shellfish derived Allergy Intermediate Nausea Verified 04/20/23 06:14 pravastatin AdvReac Intermediate body ache Verified 04/20/23 06:14 Review of Systems Sugical H&P ROS: Negative: Constitution, Cardiovascular, Respiratory, Neurological, Psychiatric, Hem-Onc, Allergic/Immunologic, Gastrointestinal, Genitourinary, Musculoskeletal, Integumentary, Endocrine and Eyes/Ears/Nose/Throat Exam Surgical H&P Exam: Normal: HEENT, Normal: Heart, Normal: Lungs, Normal: Extremities, Normal: Abdomen, Normal: Skin and Normal: Neurological Plan Diagnosis/Plan: Unchanged I have reviewed the history and physical and performed a pertinent physical examination on my patient. No changes have occurred unless specified. Time Spent With Patient Time: Total time managing care of this patient today ____ minutes.
[2023-04-20 08:46] VITALS: BP 162/78; PULSE 61; RESP 16; TEMP 36.2; O2SAT 99
== END 2023-04-20 09:20 | disposition home or self-care (01) ==
PROVIDERS: PCP Internal Medicine Geriatric Medicine; Visit Provider Surgery
PROC: 0DJD8ZZ Inspection of Lower Intestinal Tract, Via Natural or Artificial Opening Endoscopic (ICD-10-PCS; CPT 45378; principal; 2023-04-20 07:30)
DX: Z12.11 Encounter for screening for malignant neoplasm of colon (principal); K64.4 Residual hemorrhoidal skin tags; K56.2 Volvulus; K59.09 Other constipation; I24.9 Acute ischemic heart disease, unspecified; I10 Essential (primary) hypertension; I25.2 Old myocardial infarction; E11.9 Type 2 diabetes mellitus without complications; M79.7 Fibromyalgia; M19.90 Unspecified osteoarthritis, unspecified site; Z79.4 Long term (current) use of insulin; Z79.84 Long term (current) use of oral hypoglycemic drugs; Z79.82 Long term (current) use of aspirin; Z79.899 Other long term (current) drug therapy; Z88.8 Allergy status to other drugs, medicaments and biological substances; Z91.041 Radiographic dye allergy status; Z98.890 Other specified postprocedural states
CPT/HCPCS: G0121; 82947; J2704

== ENCOUNTER → 2023-04-20 05:59 | Outpatient (BNV) | payer OTHER, SELFPAY | PROVIDERS: PCP Internal Medicine Geriatric Medicine; Visit Provider Surgery | DX: Z12.11 Encounter for screening for malignant neoplasm of colon (principal); K64.8 Other hemorrhoids | CPT/HCPCS: G0121 ==

== ENCOUNTER 2023-05-09 09:50 | Outpatient (AMB) | payer OTHER, SELFPAY ==
--- NOTE | 2023-05-09 09:52 | MHC.OFFVIS ---
Intake Intake Visit Reasons: s/p colonoscopy Intake Note: This patient presents for a follow-up assessment for colonoscopy results. Patient c/o; reports no complaints at this time. Emergency Department Manager Required: Yes Emergency Department Manager Language: Global Engineering Manager Name: Sarah Information Interpreted: non-clinical & clinical Accompanied by: Self / Same As Patient Allergies fish derived [fish] Allergy (Intermediate, Verified 05/09/23 10:06) Nausea iodine [IODINE] Allergy (Intermediate, Verified 05/09/23 10:06) NAUSEA shellfish derived Allergy (Intermediate, Verified 05/09/23 10:06) Nausea pravastatin Adverse Reaction (Intermediate, Verified 05/09/23 10:06) body ache HPI s/p colonoscopy HPI Details She had undergone screening colonoscopy last 04/20/2023. She tolerated procedure well. She currently denies significant complaints. She is here to discuss the findings. [facility] Medical History (Updated 05/09/23 @ 10:08 by Devonte Alfaro MD) Hemorrhoids NSTEMI (non-ST elevated myocardial infarction) Colon cancer screening ACS (acute coronary syndrome) Acute gastritis Fibromyalgia Arthritis Diabetes HTN (hypertension) Surgical History History of cataract surgery Hx of hand surgery H/O colonoscopy H/O hysterectomy with oophorectomy Social History Alcohol intake: never Patient Tobacco Use Status: Never used Tobacco Advance Directives Date on File: 03/01/22 service: No Current occupational status: unemployed Current occupation: right handed Gender identity: Female Review of Systems Const Denies chills and Denies fever(s) Card Denies chest pain, Denies dyspnea and Denies dyspnea on exertion Resp Denies cough, Denies dyspnea and Denies dyspnea on exertion GI Denies hematochezia and Denies change in bowel habits Denies hematuria Musc Denies back pain and Denies limited range of motion Neuro Denies focal weakness and Denies convulsions Psych Denies depression and Denies mood swings Physical Exam Const General: comfortable and no acute distress Resp Effort & Inspection: normal respiratory effort GI Palpation (GI): Soft to palpation, not firm and nontender Assessment & Plan Assessment & Plan (1) Colon cancer screening: Code(s): Z12.11 - Encounter for screening for malignant neoplasm of colon Plan: Status post colonoscopy. She tolerated procedure well. She did have hemorrhoids seen on examination. I was unable to intubate the cecum because of severe looping. I would therefore told her that I would recommend repeating her colonoscopy just before he turns 77. She understands the plan well. (2) Hemorrhoids: Code(s): K64.9 - Unspecified hemorrhoids Plan: She had internal and external hemorrhoids . These appear to be asymptomatic. Coding Level of Care Code Est Pt Level 2 (40248) Diagnoses Colon cancer screening Z12.11 Hemorrhoids K64.9
== END 2023-05-09 10:04 | disposition home or self-care (01) ==
PROVIDERS: PCP Internal Medicine Geriatric Medicine; Visit Provider Surgery
DX: Z12.11 Encounter for screening for malignant neoplasm of colon (principal); K64.9 Unspecified hemorrhoids
CPT/HCPCS: 99212

== ENCOUNTER → 2023-05-09 09:50 | Outpatient (BNVA) | payer OTHER, SELFPAY | PROVIDERS: PCP Internal Medicine Geriatric Medicine; Visit Provider Surgery | DX: Z12.11 Encounter for screening for malignant neoplasm of colon (principal); K64.9 Unspecified hemorrhoids | CPT/HCPCS: 99212 ==

== ENCOUNTER 2023-06-21 08:23 | Outpatient (REF) | payer OTHER, SELFPAY ==
[2023-06-21 11:54] LABS: Anion Gap 12 (12-20); Blood Urea Nitrogen 11 mg/dL (9-16); Calcium 9.3 mg/dL (8.4-10.2); Carbon Dioxide 28 mmol/L (22-29); Chloride 105 mmol/L (96-108); Estimated Glomerular Filt Rate > 60; Glucose Random 97 mg/dL (60-115); Potassium 3.9 mmol/L (3.3-5.1); Sodium 141 mmol/L (135-145)
[2023-06-21 12:19] LABS: Creatinine Urine 354.29 mg/dL; Microalbum/Creatinine Ratio Ur 24.2 ug/mg cr (<30)
== END 2023-06-21 08:24 | disposition home or self-care (01) ==
LOC: HO.HHCL 08:23
PROVIDERS: Visit Provider Internal Medicine Geriatric Medicine
DX: E11.65 Type 2 diabetes mellitus with hyperglycemia (principal); Z79.4 Long term (current) use of insulin
CPT/HCPCS: 36415; 80048; 82043; 82570

== ENCOUNTER 2023-07-10 20:06 | Emergency (ER) | payer OTHER, SELFPAY ==
--- NOTE | ~2023-07-10 | XR_ITS ---
EXAMINATION: XR HIP, RIGHT CLINICAL INFORMATION: Fall. Pain. COMPARISON: None available. TECHNIQUE: Two views of the right hip. FINDINGS: The bony structures are osteopenic. There is mild/early right hip degenerative change with mild loss of joint space and subchondral sclerosis. No fracture is seen. The soft tissues are unremarkable. There is lower lumbar disc degenerative change. XR/XR hip RT min 2V IMPRESSION: Mild/early right hip degenerative change. No fracture seen.
--- NOTE | ~2023-07-10 | XR_ITS ---
EXAMINATION: XR hip LT w PEL1V, XR ribs LT min 3V w CXR1V CLINICAL INFORMATION: Reason for Exam Fall COMPARISON: Left hip radiographs 09/11/2011. TECHNIQUE: AP pelvic radiograph, AP and lateral radiographs of the left hip; PA chest, 3 view series left ribs. FINDINGS: Pelvis and left hip: Visualized left femur is intact. Mild osteophytosis of the left acetabulum is unchanged compared with 09/11/2011. Mild enthesopathic changes of the greater trochanter of the left hip are noted. Pelvis appears intact. No gross arthropathic changes of the right hip visualized. Mild superior joint space narrowing and mild superior acetabular subchondral sclerosis of the left hip utilized. Incidental note made of pelvic phleboliths and possible fallopian tube ligation devices. CHEST: Clip heart click pleura normal pattern of pulmonary vasculature. No focal pulmonary consolidation. Left RIBS: No displaced left rib fractures identified. No suspicious osseous lesions noted. Partial visualization of mild multilevel endplate osteophytosis of the thoracic spine. XR/XR hip LT w PEL1V IMPRESSION: Pelvis and left hip: 1. No acute abnormalities identified. 2. Mild left hip osteoarthritis unchanged compared with 09/11/2011. CHEST: No acute cardiopulmonary abnormalities. LEFT RIBS: No displaced left rib fractures identified.
--- NOTE | ~2023-07-10 | XR_ITS ---
EXAMINATION: XR hip LT w PEL1V, XR ribs LT min 3V w CXR1V CLINICAL INFORMATION: Reason for Exam Fall COMPARISON: Left hip radiographs 09/11/2011. TECHNIQUE: AP pelvic radiograph, AP and lateral radiographs of the left hip; PA chest, 3 view series left ribs. FINDINGS: Pelvis and left hip: Visualized left femur is intact. Mild osteophytosis of the left acetabulum is unchanged compared with 09/11/2011. Mild enthesopathic changes of the greater trochanter of the left hip are noted. Pelvis appears intact. No gross arthropathic changes of the right hip visualized. Mild superior joint space narrowing and mild superior acetabular subchondral sclerosis of the left hip utilized. Incidental note made of pelvic phleboliths and possible fallopian tube ligation devices. CHEST: Clip heart click pleura normal pattern of pulmonary vasculature. No focal pulmonary consolidation. Left RIBS: No displaced left rib fractures identified. No suspicious osseous lesions noted. Partial visualization of mild multilevel endplate osteophytosis of the thoracic spine. XR/XR ribs LT min 3V w CXR1V IMPRESSION: Pelvis and left hip: 1. No acute abnormalities identified. 2. Mild left hip osteoarthritis unchanged compared with 09/11/2011. CHEST: No acute cardiopulmonary abnormalities. LEFT RIBS: No displaced left rib fractures identified.
[2023-07-10 20:14] VITALS: BP 127/60; PULSE 80; RESP 18; TEMP 36.5; O2SAT 99; BMI 19.3
--- NOTE | 2023-07-10 20:20 | ECG_ITS ---
Test Reason : chest pain Blood Pressure : / mmHG Vent. Rate : 074 BPM Atrial Rate : 074 BPM P-R Int : 150 ms QRS Dur : 060 ms QT Int : 402 ms P-R-T Axes : 057 056 068 degrees QTc Int : 446 ms Normal sinus rhythm Normal ECG When compared with ECG of 23-FEB-2022 15:12, No significant change was found Referred By: Boston Pringle Electronically Signed By:RENEE MANUEL MD
--- NOTE | 2023-07-10 20:22 | ED_ITS ---
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 Patient was changing her clothes lost balance and fell backward hurting her left hip, patient has been complaining of left-sided rib pain before the fall was seen and evaluated by her PCP for this pain. Patient normally lives home alone walk with a walker. Related Data Home Medications Medication Instructions Recorded Confirmed acetaminophen 500 mg tablet 1,000 mg PO Q8H PRN pain 08/31/20 04/20/23 aspirin 81 mg tablet,delayed 81 mg PO DAILY 08/31/20 04/20/23 release lancets 33 gauge #100 ea 08/31/20 03/15/23 lisinopril 5 mg tablet 5 mg PO DAILY 08/31/20 04/20/23 pen needle, diabetic 32 gauge x #50 ea 08/31/20 03/15/23 cholecalciferol (vitamin D3) 50 1 tab PO DAILY 02/24/22 04/20/23 mcg (2,000 unit) tablet fluoxetine 20 mg capsule 20 mg PO QAM 03/23/22 04/20/23 omeprazole 20 mg capsule,delayed 20 mg PO DAILY@0630 03/23/22 04/20/23 release insulin glargine 100 unit/mL (3 20 unit subcut DAILY 09/26/22 04/20/23 mL) subcutaneous pen (Lantus Solostar U-100 Insulin) metformin 500 mg tablet,extended 1,000 mg PO BID 09/26/22 04/20/23 release 24 hr Previous Rx's Medication Instructions Recorded tramadol 50 mg tablet 50 mg PO Q6H PRN pain #20 tabs 09/15/22 Allergies Allergy/AdvReac Type Severity Reaction Status Date / Time fish derived [fish] Allergy Intermediate Nausea Verified 05/09/23 10:06 iodine [IODINE] Allergy Intermediate NAUSEA Verified 05/09/23 10:06 shellfish derived Allergy Intermediate Nausea Verified 05/09/23 10:06 pravastatin AdvReac Intermediate body ache Verified 05/09/23 10:06 Review of Systems 2 Review of Systems: All other systems are reviewed and are negative Constitutional: Reports as per HPI and Reports no additional constitutional complaints Eyes: Reports as per HPI and Reports no additional eye complaints Reports system reviewed and no additional complaints, except as documented Cardiovascular: Reports as per HPI and Reports no additional cardiovascular complaints Respiratory: Reports as per HPI and Reports no additional respiratory complaints Gastrointestinal: Reports as per HPI and Reports no additional gastrointestinal complaints Genitourinary: Reports no additional female genitourinary complaints Musculoskeletal: Reports no additional musculoskeletal complaints Skin/Breast: Reports system reviewed and no additional complaints, except as docu Psychiatric: Reports no additional psychiatric complaints Endocrine: Reports no additional endocrine complaints Hematologic/Lymphatic: Reports no additional hematologic/lymphatic complaints Allergic/Immunologic: Reports no additional allergic/immunologic complaints Reports system reviewed and no additional complaints, except as documented and Reports Abnormal speech present [facility] Past Medical History Medical History Hemorrhoids NSTEMI (non-ST elevated myocardial infarction) Colon cancer screening ACS (acute coronary syndrome) Acute gastritis Fibromyalgia Arthritis Diabetes HTN (hypertension) Surgical History History of cataract surgery Hx of hand surgery H/O colonoscopy H/O hysterectomy with oophorectomy Social History Social History Alcohol intake: never Patient Tobacco Use Status: Never used Tobacco Advance Directives: Yes Advance Directives on File: Yes Advance Directives Date on File: 03/01/22 service: No Current occupational status: unemployed Current occupation: right handed Gender identity: Female Physical Exam ED Vital Signs: Vital Signs - 24 hr 07/10/23 20:14 07/11/23 02:42 Temperature 97.7 F 98.1 F Pulse Rate 80 62 Respiratory Rate 18 18 Blood Pressure 127/60 156/55 H Pulse Oximetry 99 98 Oxygen Delivery Method Room Air Room Air BMI result Body Mass Index 19.3 Vital signs have been reviewed and appear to be correct. Blood pressure elevated. Heart rate normal. Respiratory rate normal. Temperature normal. Oxygen saturation normal. Appearance: Alert. Oriented X3. No acute distress. Head: Normal external exam. Normocephalic. Atraumatic. No Fitzgerald signs noted. No raccoon eyes noted Eyes: PERRLA. EOMI. Conjunctiva and sclera normal. Eyelids normal. ENT: TM's Normal. Pharynx normal. Uvula midline. Moist mucous membranes. No trismus noted. No drooling noted. No muffled voice noted. Neck: Normal inspection. Neck supple. FROM. No adenopathy. Thyroid Normal. No meningeal signs. No neck mass noted. CVS: Normal heart rate and rhythm. Heart sound normal. No murmurs noted. Pulses normal throughout. Respiratory: No respiratory distress. Painless inspiration. Breath sounds normal. No wheezes/rales/rhonchi noted. Chest nontender. No accessory muscle usage noted or decreased air movement noted. Abdomen: Soft and nontender. Bowel sounds normal in all 4 quadrants. No distention noted. No organomegaly noted. No visible injury noted. Back: No CVA tenderness. Full range of motion noted. Skin: Skin warm and dry. Normal skin color. Normal skin turgor. No rashes/lesions/lacerations noted. Extremities: Bilateral hips: Full range of motion, no fracture Neuro: Oriented X 3. Cranial nerve exam: II-XII are grossly intact No motor deficit. No sensory deficit. Reflexes normal. Course Course Course Narrative: RME: 73 yold female with pmh of DM and chronic lower extremity nueropathy presents to the ED for left hip paind and left rib pain after falling yesterday. patient fell yesterday. denies hitting head. chronic numbness of lower extremites due DM. negative for neuro deficits. labs, images, and EKG Ordered. Reevaluation(s) Reevaluation #1: S/p mechanical fall 2 days ago complaining of bilateral hip pain and left-sided rib pain, no acute fracture on the x-ray, labs are unremarkable will discharge to use Tylenol/ibuprofen if needed for pain. Time: 03:50 Medications Administered Discontinued Medications Generic Name Dose Route Start Last Admin Trade Name Freq PRN Reason Stop Dose Admin Ibuprofen 600 mg 07/11/23 03:47 07/11/23 04:09 Ibuprofen 600 Mg Tablet PO 07/11/23 03:48 600 mg ONCE ONE Administration Medical Decision Making Differential Diagnosis Differential Diagnoses: The differential diagnosis associated with the presentation includes (Right hip fracture, left hip fracture, left rib fracture, electrolyte derangement, anemia.) Admission/Observation Consideration of admission/observation: Escalation of care including admission/observation considered Lab Data MDM Lab Attestation statement: I reviewed the patient's lab results. 07/10/23 20:39 07/10/23 20:39 Labs: Lab Results 07/10/23 Range/Units 20:39 WBC 5.8 (4.8-10.8) X10*3/uL RBC 4.29 (4.20-5.50) X10*6/uL Hgb 11.6 L (12.0-16.0) g/dl Hct 35.4 L (37.0-47.0) % MCV 82.5 (80.0-98.0) fL MCH 27.0 (27.0-33.0) pg MCHC 32.8 (31.0-35.0) g/dl RDW 13.2 (11.0-16.0) % Plt Count 246 (160-400) X10*3/uL MPV 8.8 L (9.4-12.3) fL Immature Gran % (Auto) 0.3 (0.0-0.4) % Neut % (Auto) 38.3 L (45-73) % Lymph % (Auto) 52.4 H (20-40) % [place] % (Auto) 7.1 (2-11) % Eos % (Auto) 1.4 (0-4) % Baso % (Auto) 0.5 (0-2) % Lymph # (Auto) 3.0 (1.2-4.9) X10*3/uL [place] # (Auto) 0.4 (0.1-1.2) X10*3/uL Eos # (Auto) 0.1 (0.0-0.4) X10*3/uL Baso # (Auto) 0.0 (0.0-0.2) X10*3/uL Abs Immat Gran (auto) 0.02 (0.00-0.03) X10*3/uL Absolute Neuts (auto) 2.2 (2.0-8.3) x10*3/uL Absolute Nucleated RBC 0.000 (0.0-0.012) X10*3/uL Nucleated RBC % (auto) 0.0 (0.0-0.2) /100WBC PT 11.7 (11.1-13.3) SEC INR 1.0 (0.9-1.1) APTT 32.3 (26.0-36.8) SEC Sodium 138 (135-145) mmol/L Potassium 3.9 (3.3-5.1) mmol/L Chloride 102 (96-108) mmol/L Carbon Dioxide 27 (22-29) mmol/L Anion Gap 13 (12-20) BUN 13 (9-16) mg/dL Creatinine 0.74 (0.5-1.4) mg/dL Estim Creat Clear Calc 49.4 Estimated GFR > 60 Random Glucose 205 H (60-115) mg/dL Calcium 9.3 (8.4-10.2) mg/dL Total Bilirubin 0.4 (0.0-1.0) mg/dL AST 13 (5-31) U/L ALT 8 (0-31) U/L Alkaline Phosphatase 91 (39-117) U/L Troponin I High Sens < 2.7 (<3.5-17.0) ng/L Total Protein 6.6 (6.5-8.0) g/dL Albumin 4.0 (3.5-5.0) g/dL Independent Interpretation I performed an independent interpretation of an: EKG (Normal sinus rhythm at 74 beats per minutes, normal intervals, no ST-T changes.) and Plain X-Ray (Bilateral hips x-ray, left rib x-ray: Degenerative disease with no fracture.) Radiology Impression Discussion of test interpretation with radiology: I have reviewed the radiologist's reading. Discharge Plan Discharge Clinical Impression: Accident due to mechanical fall without injury, Contusion of hip, right, Chest wall contusion Patient Disposition: Home, Self-Care Instructions: Contusion in Adults (ED) Prescriptions: No Action cholecalciferol (vitamin D3) 50 mcg (2,000 unit) tablet 1 tab PO DAILY omeprazole 20 mg capsule,delayed release(DR/EC) 20 mg PO DAILY@0630 tramadol 50 mg tablet 50 mg PO Q6H PRN (Reason: pain) Qty: 20 0RF acetaminophen 500 mg tablet 1,000 mg PO Q8H PRN (Reason: pain) (DME) lancets 33 gauge misc See Rx Instructions Not Applicable .MEDSUPPLY Qty: 100 Rx Instructions: As directed (DME) pen needle, diabetic 32 gauge x 5/32 needle See Rx Instructions .ROUTE DAILY Qty: 50 Rx Instructions: As directed lisinopril 5 mg tablet 5 mg PO DAILY aspirin 81 mg tablet,delayed release (DR/EC) 81 mg PO DAILY fluoxetine 20 mg capsule 20 mg PO QAM metformin 500 mg tablet extended release 24 hr 1,000 mg PO BID insulin glargine [Lantus Solostar U-100 Insulin] 100 unit/mL (3 mL) insulin pen 20 unit subcut DAILY Referrals: Name,MD Hussein [Primary Care Provider] - Interventions: ED Discharge Assessment Last Done: 07/11/23 07:24 Discharge Date/Time: 07/11/23 07:46
[2023-07-10 20:44] LABS: MANUAL DIFF FLAG NO
[2023-07-10 20:46] LABS: Basophils Percent Auto 0.5 % (0-2); Eosinophils Absolute Auto 0.1 X10*3/uL (0.0-0.4); Eosinophils Percent Auto 1.4 % (0-4); Hematocrit 35.4 % (37.0-47.0); Hemoglobin 11.6 g/dl (12.0-16.0); Imm Gran Abs Auto 0.02 X10*3/uL (0.00-0.03); Imm Gran Pct Auto 0.3 % (0.0-0.4); Lymphocytes Percent Auto 52.4 % (20-40); Mean Corpuscular HGB Conc 32.8 g/dl (31.0-35.0); Mean Corpuscular Volume 82.5 fL (80.0-98.0); Mean Platelet Volume 8.8 fL (9.4-12.3); Monocytes Absolute Auto 0.4 X10*3/uL (0.1-1.2); Monocytes Percent Auto 7.1 % (2-11); Neutrophils Absolute Auto 2.2 x10*3/uL (2.0-8.3); Neutrophils Percent Auto 38.3 % (45-73); Platelet Count 246 X10*3/uL (160-400); Red Blood Count 4.29 X10*6/uL (4.20-5.50); Red Cell Distribution Width 13.2 % (11.0-16.0); White Blood Count 5.8 X10*3/uL (4.8-10.8)
[2023-07-10 20:51] LABS: Prothrombin Time 11.7 SEC (11.1-13.3)
[2023-07-10 20:54] LABS: Partial Thromboplastin Time 32.3 SEC (26.0-36.8)
[2023-07-10 21:01] LABS: Alanine Aminotransferase 8 U/L (0-31); Alkaline Phosphatase 91 U/L (39-117); Anion Gap 13 (12-20); Aspartate Amino Transferase 13 U/L (5-31); Bilirubin Total 0.4 mg/dL (0.0-1.0); Blood Urea Nitrogen 13 mg/dL (9-16); Calcium 9.3 mg/dL (8.4-10.2); Carbon Dioxide 27 mmol/L (22-29); Chloride 102 mmol/L (96-108); Creatinine Clr Calc Pharmacy 49.4; Estimated Glomerular Filt Rate > 60; Glucose Random 205 mg/dL (60-115); Potassium 3.9 mmol/L (3.3-5.1); Sodium 138 mmol/L (135-145); Total Protein 6.6 g/dL (6.5-8.0)
[2023-07-10 21:09] LABS: Troponin-I High Sensitivity < 2.7 ng/L (<3.5-17.0)
[2023-07-11 02:42] VITALS: BP 156/55; PULSE 62; RESP 18; TEMP 36.7; O2SAT 98
[2023-07-11] MEDS: Ibuprofen 600 MG TABLET PO (04:09)
== END 2023-07-11 07:46 | disposition home or self-care (01) ==
PROVIDERS: Physician Assistant; Emergency Provider Emergency Medicine; PCP Internal Medicine Geriatric Medicine
DX: S70.02XA Contusion of left hip, initial encounter (principal); S20.212A Contusion of left front wall of thorax, initial encounter; W18.39XA Other fall on same level, initial encounter; E11.9 Type 2 diabetes mellitus without complications; I10 Essential (primary) hypertension; E78.5 Hyperlipidemia, unspecified; Z79.82 Long term (current) use of aspirin; Z79.84 Long term (current) use of oral hypoglycemic drugs; Z79.4 Long term (current) use of insulin; Z79.899 Other long term (current) drug therapy; Y93.89 Activity, other specified; Y92.032 Bedroom in apartment as the place of occurrence of the external cause; Y99.9 Unspecified external cause status
CPT/HCPCS: 36415; 71101; 73502; 80053; 84484; 85025; 85610; 85730; 93005; 99283; 99284

== ENCOUNTER → 2023-07-10 20:20 | Outpatient (BNV) | payer OTHER, SELFPAY | PROVIDERS: Emergency Provider Emergency Medicine; PCP Internal Medicine Geriatric Medicine; Visit Provider Internal Medicine Cardiovascular Disease | DX: R07.9 Chest pain, unspecified (principal) | CPT/HCPCS: 93010 ==

== ENCOUNTER 2023-09-27 12:51 | Outpatient (AMB) | payer OTHER, SELFPAY ==
[2023-09-27 12:57] VITALS: BP 130/62; PULSE 72; BMI 19.5
--- NOTE | 2023-09-27 12:57 | A.OFFVIS_ITS ---
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 Present Allergies fish derived [fish] Allergy (Intermediate, Verified 09/27/23 13:02) Nausea iodine [IODINE] Allergy (Intermediate, Verified 09/27/23 13:02) NAUSEA shellfish derived Allergy (Intermediate, Verified 09/27/23 13:02) Nausea pravastatin Adverse Reaction (Intermediate, Verified 09/27/23 13:02) body ache Medication List - Last Reconciled 09/27/23 by Wanda Alanis NP-C acetaminophen 1,000 mg PO Q8H PRN aspirin 81 mg PO DAILY cholecalciferol (vitamin D3) 1 tab PO DAILY fluoxetine 20 mg PO QAM insulin glargine (Lantus Solostar U-100 Insulin) 20 units subcut DAILY lancets As directed lisinopril 5 mg PO DAILY metformin ER 1,000 mg PO BID omeprazole 20 mg PO DAILY@0630 pen needle, diabetic As directed HPI HPI 1 yr f/u: Details: Orly is a 73-year-old female with past medical history diabetes, hypertension, secondary NSTEMI, 02/2022 who now presents for follow-up. Today she states that she has been feeling well since her last visit, 09/26/2022. No chest discomfort at rest or with activity. No shortness of breath, palpitations, presyncope, syncope, falls, PND, orthopnea or edema. She has had some issues with unsteadiness and now ambulates with a cane. She tolerate light physical activity. She takes meds as directed. 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 [facility] Medical History Hemorrhoids NSTEMI (non-ST elevated myocardial infarction) Colon cancer screening ACS (acute coronary syndrome) Acute gastritis Fibromyalgia Arthritis Diabetes HTN (hypertension) Surgical History History of cataract surgery Hx of hand surgery H/O colonoscopy H/O hysterectomy with oophorectomy Social History Alcohol intake: never Patient Tobacco Use Status: Never used Tobacco Advance Directives Date on File: 03/01/22 service: No Current occupational status: unemployed Current occupation: right handed Gender identity: Female Review of Systems Const All systems reviewed & are unremarkable except as noted in HPI and below ENT Reports dizziness Card Denies chest pain, Denies chest pain at rest, Denies chest pain with activity, Denies rapid heart rate, Denies pedal edema, Denies edema, Denies leg edema, Denies lightheadedness, Denies palpitations, Denies dyspnea, Denies dyspnea on exertion and Denies orthopnea Resp Denies cough, Denies dyspnea and Denies dyspnea on exertion GI Denies hematochezia and Denies change in stool character Musc Details: balance issues, uses cane Reports abnormal gait, Denies limited range of motion, Denies muscle cramps, Denies muscle weakness, Denies numbness, Denies radiating pain into limb, Denies stiffness and Denies tingling Neuro Reports abnormal gait, Reports dizziness, Denies numbness and Denies tingling Endo Denies palpitations Physical Exam Vital Signs: Last Vital Signs Pulse 72 09/27/23 12:57 BP 130/62 09/27/23 12:57 BMI result Body Mass Index 19.5 Const General: cooperative, healthy appearing, comfortable and no acute distress Neck Neck: Yes normal visual inspection Resp Effort & Inspection: normal respiratory effort Auscultation: clear to auscultation bilaterally, no crackles, no rales, no rhonchi and no wheezes Cardio Jugular venous distension: no JVD Rate: regular rate Rhythm: regular rhythm Heart sounds: S1 normal heart sound present, S2 normal heart sound present, no gallops, no murmurs and no rubs GI Inspection: Yes normal to inspection Extrem General: Yes normal to inspection, No no pedal edema and No calf tenderness Psych Appearance: grossly normal Mental Status: mental status grossly normal Speech and movement: Normal speech and movement present Assessment & Plan Assessment & Plan (1) NSTEMI (non-ST elevated myocardial infarction): Code(s): I21.4 - Non-ST elevation (NSTEMI) myocardial infarction Category: Medical Plan: [facility] [place] Admit 02/23/2022 with abdominal discomfort: gastritis. Noted to have rise in Troponins, up to 198, consistent with NSTEMI. No known cardiac hx. Has risk factors of DM, HTN, age. EKG showed ST, no acute ST/ T wave abn, rate 101. Echo shows normal EF, impaired relaxation, can't exclude regional WMA. She did undergo an inpt pharmacological nuclear stress test which showed normal myocardial perfusion imaging, EF greater than 70%. She was managed medically. She did not tolerate metoprolol with reports of fatigue and lightheadedness. She did not tolerate statins or Zetia as she has generalized myalgias and problems with fibromyalgia and carpal tunnel. [place] LDL goal less than 70 in patient with diabetes. Labs done 02/25/2022 show LDL 111. She has lab orders in place a s ordered by her PCP. Informed her to get these done. If LDL is elevated greater than 70 then recommend starting PCSK9 inhibitor. Will forward this note to her PCP. Today she reports no anginal sounding symptoms. She is on aspirin and reports compliance. She is on lisinopril for blood pressure control. Blood pressure is in the normal range today. No med changes are being made. Ongoing risk factor modification including good blood pressure, blood sugar, cholesterol control, activity as tolerated. Signs and symptoms of angina discussed with her. Cardiology follow-up in 1 year sooner if needed. (2) HTN (hypertension): Code(s): I10 - Essential (primary) hypertension Category: Medical Plan: Blood pressure normal range today. Continue lisinopril. (3) Hyperlipidemia LDL goal <70: Code(s): E78.5 - Hyperlipidemia, unspecified Category: Medical Plan: Fasting lipids orders are in place. Patient notified to obtain. If LDL is greater than 70 then recommend PCSK9 inhibitor (Praluent, Repatha) Plan Time spent on chart review, documentation, interview and assessment Coding Level of Care Code Est Pt Level 3 (94858) Diagnoses NSTEMI (non-ST elevated myocardial infarction) I21.4 HTN (hypertension) I10 Hyperlipidemia LDL goal <70 E78.5 Time Spent (min) 24
== END 2023-09-27 13:27 | disposition home or self-care (01) ==
PROVIDERS: PCP Internal Medicine Geriatric Medicine; Visit Provider Nurse Practitioner Family
DX: I21.4 Non-ST elevation (NSTEMI) myocardial infarction (principal); I10 Essential (primary) hypertension; E78.5 Hyperlipidemia, unspecified
CPT/HCPCS: 99213

== ENCOUNTER → 2023-09-27 12:51 | Outpatient (BNVA) | payer OTHER, SELFPAY | PROVIDERS: PCP Internal Medicine Geriatric Medicine; Visit Provider Nurse Practitioner Family | DX: I25.2 Old myocardial infarction (principal); I10 Essential (primary) hypertension; E78.5 Hyperlipidemia, unspecified | CPT/HCPCS: 99212 ==

== ENCOUNTER 2023-10-17 11:59 | Outpatient (REF) | payer OTHER, SELFPAY ==
[2023-10-17 13:40] LABS: Alanine Aminotransferase 8 U/L (0-31); Albumin Level 4.3 g/dL (3.5-5.0); Alkaline Phosphatase 104 U/L (39-117); Anion Gap 13 (12-20); Aspartate Amino Transferase 13 U/L (5-31); Bilirubin Total 0.4 mg/dL (0.0-1.0); Blood Urea Nitrogen 13 mg/dL (9-16); Calcium 10.1 mg/dL (8.4-10.2); Carbon Dioxide 30 mmol/L (22-29); Chloride 101 mmol/L (96-108); Cholesterol 205 mg/dL (<200); Estimated Glomerular Filt Rate > 60; Glucose Random 131 mg/dL (60-115); HDL Cholesterol 56 mg/dL (>40); LDL Cholesterol Calculated 134 mg/dL (<100); Potassium 4.7 mmol/L (3.3-5.1); Sodium 139 mmol/L (135-145); Total Protein 7.2 g/dL (6.5-8.0); Triglycerides 75 mg/dL (<150)
== END 2023-10-17 12:00 | disposition home or self-care (01) ==
LOC: HO.HHCL 11:59
PROVIDERS: Visit Provider Internal Medicine Geriatric Medicine
DX: E78.00 Pure hypercholesterolemia, unspecified (principal)
CPT/HCPCS: 36415; 80053; 80061